=== PATIENT | male | born 1955 | race Caucasian/White ===

== ENCOUNTER 2017-12-21 06:33 | Emergency (ER) | payer SELFPAY ==
[~2017-12-21] VITALS: Ht 177.8 cm; Wt 90.7 kg
[2017-12-21] MEDS ORDERED: TETANUS,DIPTH,PERTUSS P/F (BOOSTRIX) 0.5 ML VIAL IM STA (06:42)
[2017-12-21] MEDS ORDERED: RT-ALBUTEROL/IPRATROPIUM 3 ML (DUONEB) VIAL INH ONE (06:45)
[2017-12-21] MEDS ORDERED: MULT-166 PO (06:47)
[2017-12-21] MEDS ORDERED: CYAN100T (06:47)
[2017-12-21] MEDS ORDERED: DOXA2TAB PO (06:47)
[2017-12-21] MEDS ORDERED: LORA10TA7 (06:47)
[2017-12-21] MEDS ORDERED: LOSA50TA36 (06:47)
[2017-12-21] MEDS ORDERED: LACT1CAP62 PO (06:47)
[2017-12-21] MEDS ORDERED: CHOL400D4 PO (06:47)
[2017-12-21] MEDS ORDERED: METH5TAB4 PO (06:47)
[2017-12-21] MEDS ORDERED: CALC-879 PO (06:47)
[2017-12-21] MEDS ORDERED: ALBU2.5V4 (06:47)
[2017-12-21] MEDS ORDERED: FESO45ML PO (06:47)
[2017-12-21] MEDS ORDERED: INSU100V3 SQ (06:47)
[2017-12-21] MEDS ORDERED: FOLI1TAB24 PO (06:47)
--- NOTE | 2017-12-21 06:52 | ED Fall/Injury ---
General Chief Complaint: Trauma-Non Activation Stated Complaint: FALL Nursing Triage Note: Patient brought in from half-way after patient was found on floor. Per EMS half-way staff reports that patient is a new resident and was admitted late last evening. Patient c/o neck pain. laceration above R eye Source: patient, EMS Exam Limitations: clinical condition, physical impairment History of Present Illness Date Seen by Provider: Dec 21, 2017 Time Seen by Provider: 06:33 Initial Comments Here by [facility] with report of fall fall at sometime overnight at the half-way. He is apparently admitted to the half-way about 15 hours ago. They did not even realize that he can walk. Apparently admitted due to stroke. Patient apparently had intracranial hemorrhage some point. He does have diagnosis of high blood pressure and dysphagia. Also has history of COPD hormone other things. Patient is eyes open and does answer some simple questions but difficult to understand. Does appear to have some wheezing but overall normal vital signs. There is a small abrasion over the right along the eyebrow. He apparently complained of some neck pain earlier today EMS and c- collar was applied by them. This remains. He denies pain currently. Unsure of tetanus status. Occurred: this morning (some time between late last night and this morning) Severity: mild Injuries/Pain Location: face, neck Context: unknown Loss of Consciousness: unsure Associated Symptoms (Fall): No Abdominal Pain, No Chest Pain, No Nausea/ Vomiting; Neck Pain Allergies and Home Medications Allergies Coded Allergies: No Known Drug Allergies (Unverified , 12/21/17) Home Medications Insulin Regular, Human 1,000 Units/10 Ml Soln, 25 UNITS SQ BID, (Reported) Patient Home Medication List Home Medication List Reviewed: Yes (reviewed half-way med list) Review of Systems Constitutional: no symptoms reported Respiratory: see HPI; No cough; wheezing Cardiovascular: No chest pain Musculoskeletal: see HPI, neck pain Skin: see HPI, lesions Review of systems Limited due to underlying chronic medical problems. Past Llwotwp-Dqzfig-Rrxnto Hx Patient Social History Alcohol Use: Denies Use Recreational Drug Use: No Smoking Status: Former Smoker Recent Foreign Travel: No Contact w/Someone Who Travel: No Recent Infectious Disease Expo: No Past Medical History Surgeries: Yes Abdominal (PEG tube), Gallbladder Respiratory: Yes COPD Cardiac: Yes High Cholesterol, Hypertension Neurological: Yes Stroke Gastrointestinal: Yes Hepatitis, Cirrhosis Endocrine: Yes Diabetes, Insulin dep HEENT: No Family Medical History Reviewed Nursing Family Hx No Pertinent Family Hx Physical Exam Vital Signs Vital Signs - First Documented 12/21/17 06:35 Temp 97.8 Pulse 75 Resp 36 B/P (MAP) 145/90 (108) Pulse Ox 93 O2 Delivery Room Air Capillary Refill : Less Than 3 Seconds General Appearance: WD/WN, no apparent distress HEENT: PERRL/EOMI, pharynx normal Neck: non-tender, supple, other (patient has c-collar in place. Neck evaluated and c-collar remains in place.) Cardiovascular: regular rate, rhythm, no murmur Respiratory: No crackles; wheezing, expiration, other (tachypnea) Gastrointestinal: non tender, soft Back: no CVA tenderness, no vertebral tenderness Extremities: non-tender, normal inspection Neurologic/Psychiatric: alert, other (eyes open and does answer simple questions. Follows simple commands) Skin: warm/dry, other (has centimeter laceration/abrasion to the right eyebrow. Has some old blood around the wound. It is scabbed over now.) [place] Coma Score Best Eye Response: (4) Open Spontaneously Best Verbal Response: (4) Confused Conversation (appears to be baseline) Best Motor Response: (6) Obeys Commands [place] Total: 14 Progress/Results/Core Measures Results/Orders Lab Results Laboratory Tests Test 12/21/17 06:45 Range/Units Glucometer 141 H 70-110 MG/DL My Orders Orders - HAZEL GUZMÁN MD Albuterol/Ipra Inhalation Soln (Duoneb I (12/21/17 06:45) Ct Head/Cervical Spine Wo (12/21/17 06:40) Accucheck Stat ONCE (12/21/17 06:40) Svn Small Volume Nebulizer (12/21/17 06:40) Dipht,Pertuss(Acell),Tet Adult (Boostrix (12/21/17 06:42) Albuterol Pre-Mix Nebs (Rt) (Proventil (12/21/17 07:47) Svn Small Volume Nebulizer (12/21/17 07:47) Medications Given in ED Current Medications Medications Dose Ordered Sig/Dangelo Route Start Time Stop Time Status Last Admin Dose Admin Albuterol/ Ipratropium 3 ml ONCE ONCE INH 12/21/17 06:45 12/21/17 06:46 DC 12/21/17 06:46 3 ML Vital Signs/I&O 12/21/17 12/21/17 12/21/17 06:35 06:46 08:09 Temp 97.8 Pulse 75 Resp 36 B/P (MAP) 145/90 (108) Pulse Ox 93 94 96 O2 Delivery Room Air Room Air Room Air Blood Pressure Mean: 108 Progress Progress Note : Progress Note Seen and evaluated. CT head and neck ordered. Tetanus updated. Wound cleaned to right brow and is nonbleeding. Primary closure not indicated at this time. Unsure of the age of the wound and it is nonbleeding and appears to be small. We did initiate DuoNeb therapy and this did help significantly. He was do this this morning per med rec. Monitor patient. 0750: CT does not show any acute findings for C-spine and c-collar removed. CT head results reviewed with radiologist. The stroke listed on half-way admission diagnosis is noted. Do believe the CT findings are consistent with his admitting diagnosis to the half-way and not from this morning. I did discuss this with Dr. Little. We will repeat albuterol neb and patient will be discharged back to half-way for continued care. Discharged home with return precautions. Report given to half-way by nurse. Diagnostic Imaging Diagonstic Imaging: CT Plain Films/CT/US/NM/MRI: c-spine, head Comments NAME: OG HAILE MED REC#: [id number] PT STATUS: REG ER : 1955 PHYSICIAN: HAZEL GUZMÁN MD ADMIT DATE: 12/21/17/ER Draft Date of Exam:12/21/17 CT HEAD/CERVICAL SPINE WO PROCEDURE: CT head and CT cervical spine without contrast. TECHNIQUE: Multiple contiguous axial images were obtained through the brain and cervical spine without the use of intravenous contrast. Sagittal and coronal reformations through the cervical spine were then performed. INDICATION: Fell, head and neck pain. There are no prior studies available for comparison. CT of the head: FINDINGS: There is no mass, shift of midline or parenchymal hemorrhage to suggest an acute intracranial abnormality. However, there is a prominent area of diminished density in the periventricular white matter of the left temporal and frontal lobe this could be related to encephalomalacia from a long-standing infarct. The possibility that this is related to brain edema from a subacute infarct should also be considered. There also appears to be a small amount of hemorrhage in the dependent portion of each occipital horn. If further imaging is desired, then MRI would be recommended. There is cortical atrophy present. The degree of atrophy is consistent with the patient's age. The bone windows show no sign of a fracture or destructive lesion. Reportedly, the patient has a laceration above his right eye. This is difficult to appreciate on this exam. The orbits themselves are generally unremarkable. The sinuses are clear. IMPRESSION: 1. There is no mass or parenchymal hemorrhage identified. There is a small amount of hemorrhage in the dependent portion of each occipital horn. 2. The prominent area of diminished density in the periventricular white matter of the left temporal and frontal lobes is of uncertain etiology. Considerations and recommendations as above. 3. These results will be discussed with Dr. Eh Guzmán. CT cervical spine: The reconstructed sagittal images show slight anterior translation of C3 with respect to C4 and minimal anterior translation of C4 with respect to C5. There is also narrowing of disc spaces at C5-C6 and C6-C7. There does not appear to be any significant central stenosis at this level, but There is narrowing of the neural foramen on the right at C6-C7. There is no fracture or acute bony abnormality appreciated. The lung apices are clear. There is no retropharyngeal edema. The thyroid gland is unremarkable. IMPRESSION: 1. There is no evidence for an acute bony abnormality. 2. There is severe degenerative disc and bony disease at C5-C6 and C6-C7. Dictated on workstation # [id number] Dict: 12/21/17 0736 Trans: 12/21/17 0813 [id number] Interpreted by: TRISH HERNADEZ MD Electronically signed by: Reviewed: Reviewed by Me, Discussed w/Radiologist Departure Impression Primary Impression: Facial abrasion Qualified Codes: S00.81XA - Abrasion of other part of head, initial encounter Additional Impression: COPD (chronic obstructive pulmonary disease) with chronic bronchitis Disposition: 01 HOME, SELF-CARE Condition: Stable Departure-Patient Inst. Decision time for Depature: 07:54 Referrals: ADRIANA CARTER DO Patient Instructions: Skin Abrasions (DC), Minor Head Injury (DC) Add. Discharge Instructions: All discharge instructions reviewed with patient and/or family. Voiced understanding. Continue previously prescribed medications. He may use antibiotic ointment over wound to the right eyebrow twice daily for the next several days and then as needed. Return for worse pain, vomiting, weakness, breathing problems or other concerns as needed. Follow-up with his doctor in a few days for recheck as needed. HAZEL GUZMÁN MD Dec 21, 2017 06:51
[2017-12-21] MEDS ORDERED: RT-ALBUTEROL SULF 2.5 MG/3 ML PRE-MIX VIAL INH STA (07:47)
--- NOTE | 2017-12-21 08:13 | Diagnostic Imaging Report ---
PROCEDURE: CT head and CT cervical spine without contrast. TECHNIQUE: Multiple contiguous axial images were obtained through the brain and cervical spine without the use of intravenous contrast. Sagittal and coronal reformations through the cervical spine were then performed. INDICATION: Fell, head and neck pain. There are no prior studies available for comparison. CT of the head: FINDINGS: There is no mass, shift of midline or extra-axial hemorrhage to suggest an acute intracranial abnormality. However, there is a prominent area of diminished density in the periventricular white matter of the left temporal and frontal lobe this could be related to encephalomalacia from a long-standing infarct. The possibility that this is related to brain edema from a subacute infarct should also be considered. There may even be a minute amount of hemorrhage in this area. There also appears to be a small amount of hemorrhage in the dependent portion of each occipital horn. If further imaging is desired, then MRI would be recommended. There is cortical atrophy present. The degree of atrophy is consistent with the patient's age. The bone windows show no sign of a fracture or destructive lesion. Reportedly, the patient has a laceration above his right eye. This is difficult to appreciate on this exam. The orbits themselves are generally unremarkable. The sinuses are clear. IMPRESSION: 1. There is no mass or extra-axial hemorrhage identified. There is a small amount of hemorrhage in the dependent portion of each occipital horn and there may be a minimal amount of hemorrhage in the left temporal/frontal region amidst the prominent area of diminished density. MRI would be recommended for further study if clinically indicated. If previous exams are available, they would be helpful for comparison as well. 2. There is no acute abnormality noted otherwise. 3. These results were discussed with Dr. Eh Spain at the time of this dictation. CT cervical spine: The reconstructed sagittal images show slight anterior translation of C3 with respect to C4 and minimal anterior translation of C4 with respect to C5. There is also narrowing of disc spaces at C5-C6 and C6-C7. There does not appear to be any significant central stenosis at this level, but There is narrowing of the neural foramen on the right at C6-C7. There is no fracture or acute bony abnormality appreciated. The lung apices are clear. There is no retropharyngeal edema. The thyroid gland is unremarkable. IMPRESSION: 1. There is no evidence for an acute bony abnormality. 2. There is severe degenerative disc and bony disease at C5-C6 and C6-C7. Dictated by: Dictated on workstation # [id number]
[2017-12-21 08:43] VITALS: BP 135/86
== END 2017-12-21 08:43 | disposition home or self-care (01) ==
LOC: ER 06:36
DX: S00.81XA Abrasion of other part of head, initial encounter (principal); J44.9 Chronic obstructive pulmonary disease, unspecified; E78.00 Pure hypercholesterolemia, unspecified; I10 Essential (primary) hypertension; E11.9 Type 2 diabetes mellitus without complications; R40.2142 Coma scale, eyes open, spontaneous, at arrival to emergency department; R40.2242 Coma scale, best verbal response, confused conversation, at arrival to emergency department; R40.2362 Coma scale, best motor response, obeys commands, at arrival to emergency department; Z23 Encounter for immunization; Z87.19 Personal history of other diseases of the digestive system; Z86.73 Personal history of transient ischemic attack (TIA), and cerebral infarction without residual deficits; W19.XXXA Unspecified fall, initial encounter; Y92.129 Unspecified place in nursing home as the place of occurrence of the external cause
CPT/HCPCS: 70450; 72125; 82962; 90715; 94640

== ENCOUNTER 2018-01-09 16:34 | Emergency (ER) | payer SELFPAY ==
[~2018-01-09] VITALS: Ht 172.7 cm; Wt 81.6 kg
[~2018-01-09 16:34] MED LIST: ALBU2.5V4; CALC-879 PO; CHOL400D4 PO; CYAN100T; DOXA2TAB PO; FESO45ML PO; FOLI1TAB24 PO; INSU100V3 SQ; LACT1CAP62 PO; LORA10TA7; LOSA50TA36; METH5TAB4 PO; MULT-166 PO
--- OUTSIDE RECORDS SUMMARY | 2018-01-09 16:39 | XMS REPORT | Continuity of Care Document ---
Demographics Preferred Language Unknown Marital Status Unknown [facility] Affiliation Unknown Race Unknown Ethnic Group Unknown Author Author [facility] Address Unknown Phone Unavailable Allergies Active Description Code Type Severity Reaction Onset Reported/Identified Relationship to Patient Clinical Status Yes No Known Drug Allergies [id number] Drug Allergy Unknown N/A 12/21/2017 Medications There is no data. Problems Date Dx Coded Attending Type Code Diagnosis Diagnosed By 11/14/2017 S I10 Essential ( primary) hypertension 11/14/2017 P I6781 Acute cerebrovascular insufficiency 11/14/2017 S Z720 Tobacco use 11/14/2017 S Z751 Person awaiting admission to adequate facility elsewhere 11/14/2017 S I10 Essential ( primary) hypertension 11/14/2017 P I6781 Acute cerebrovascular insufficiency 12/21/2017 HAZEL GUZMÁN MD Ot E11.9 TYPE 2 DIABETES MELLITUS WITHOUT COMPLIC 12/21/2017 HAZEL GUZMÁN MD Ot E78.00 PURE HYPERCHOLESTEROLEMIA, UNSPECIFIED 12/21/2017 HAZEL GUZMÁN MD Ot I10 ESSENTIAL (PRIMARY) HYPERTENSION 12/21/2017 HAZEL GUZMÁN MD Ot J44.9 CHRONIC OBSTRUCTIVE PULMONARY DISEASE, U 12/21/2017 HAZEL GUZMÁN MD, Ot M54.2 CERVICALGIA 12/21/2017 HAZEL GUZMÁN MD Ot R40.2142 COMA SCALE, EYES OPEN, SPONTANEOUS, EMR 12/21/2017 HAZEL GUZMÁN MD Ot R40.2242 COMA SCALE, BEST VERBAL RESPONSE, CONFUS 12/21/2017 HAZEL GUZMÁN MD Ot R40.2362 COMA SCALE, BEST MOTOR RESPONSE, OBEYS C 12/21/2017 HAZEL GUZMÁN MD Ot S00.81XA ABRASION OF OTHER PART OF HEAD, INITIAL 12/21/2017 HAZEL GUZMÁN MD Ot W19.XXXA UNSPECIFIED FALL, INITIAL ENCOUNTER 12/21/2017 HAZEL GUZMÁN MD Ot Y92.[address] [facility] 12/21/2017 HAZEL GUZMÁN MD Ot Z23 ENCOUNTER FOR IMMUNIZATION 12/21/2017 HAZEL GUZMÁN MD Ot Z86.73 PRSNL HX OF TIA (TIA), AND CEREB INFRC W 12/21/2017 HAZEL GUZMÁN MD, Ot Z87.19 PERSONAL HISTORY OF OTHER DISEASES OF TH 12/24/2017 HAZEL GUZMÁN MD, Ot E11.9 TYPE 2 DIABETES MELLITUS WITHOUT COMPLIC 12/24/2017 HAZEL GUZMÁN MD, Ot E78.00 PURE HYPERCHOLESTEROLEMIA, UNSPECIFIED 12/24/2017 HAZEL GUZMÁN MD, Ot I10 ESSENTIAL (PRIMARY) HYPERTENSION 12/24/2017 HAZEL GUZMÁN MD, Ot J44.9 CHRONIC OBSTRUCTIVE PULMONARY DISEASE, U 12/24/2017 HAZEL GUZMÁN MD, Ot M54.2 CERVICALGIA 12/24/2017 HAZEL GUZMÁN MD, Ot R40.2142 COMA SCALE, EYES OPEN, SPONTANEOUS, EMR 12/24/2017 HAZEL GUZMÁN MD, Ot R40.2242 COMA SCALE, BEST VERBAL RESPONSE, CONFUS 12/24/2017 HAZEL GUZMÁN MD, Ot R40.2362 COMA SCALE, BEST MOTOR RESPONSE, OBEYS C 12/24/2017 HAZEL GUZMÁN MD, Ot S00.81XA ABRASION OF OTHER PART OF HEAD, INITIAL 12/24/2017 HAZEL GUZMÁN MD, Ot W19.XXXA UNSPECIFIED FALL, INITIAL ENCOUNTER 12/24/2017 HAZEL GUZMÁN MD Ot Y92.[address] [facility] 12/24/2017 HAZEL GUZMÁN MD Ot Z23 ENCOUNTER FOR IMMUNIZATION 12/24/2017 HAZEL GUZMÁN MD, Ot Z86.73 PRSNL HX OF TIA (TIA), AND CEREB INFRC W 12/24/2017 HAZEL GUZMÁN MD, Ot Z87.19 PERSONAL HISTORY OF OTHER DISEASES OF Procedures There is no data. Results Test Result Range Capillary blood glucose measurement by glucometer (mass/volume) - 12/21/17 06: 45 Capillary blood glucose measurement by glucometer (mass/volume) 141 mg/dL 70-110 Encounters ACCT No. Visit Date/Time Discharge Status Pt. Type Provider Facility Loc./Unit Complaint [id number] 12/05/2017 15:56:10 12/05/2017 23:59:59 CLS Outpatient Connie Hudson [id number] 12/21/2017 06:36:00 12/21/2017 08:43:00 DIS Emergency ARIELLE ANDERS, HAZEL Barragan [facility] ER FALL [id number] 01/09/2018 16:35:00 ACT Emergency ELENA WIKLES DO [facility] ER GI TUBE NEEDS REPLACED,STITCHES FELL OUT [id number] 11/14/2017 15:18:00 Document Registration [id number] 11/14/2017 15:18:00 Document Registration
--- NOTE | 2018-01-09 18:11 | ED GI ---
General Chief Complaint: General Problems/Pain Stated Complaint: GI TUBE NEEDS REPLACED,STITCHES FELL OUT Nursing Triage Note: pt has g-tube placed 1 mo ago, pt pulled on it today, some stitches were removed and [facility] would like placement checked. Sepsis Screen: No Definite Risk Source of Information: Patient Exam Limitations: No Limitations History of Present Illness Date Seen by Provider: Jan 09, 2018 Time Seen by Provider: 18:08 Initial Comments to ER by [facility] staff with reports of a possibly displaced jejunostomy tube. he had this placed about one month ago and it remains sutured in place. Today the sutures broke and it slid partway out. Timing/Duration: 4-6 Hours Severity/Quality: Moderate Radiation: No Radiation Allergies and Home Medications Allergies Coded Allergies: No Known Drug Allergies (Unverified , 12/21/17) Home Medications Insulin Regular, Human 1,000 Units/10 Ml Soln, 25 UNITS SQ BID, (Reported) Patient Home Medication List Home Medication List Reviewed: Yes Review of Systems Constitutional: see HPI EENTM: No Symptoms Reported Respiratory: No Symptoms Reported Cardiovascular: No Symptoms Reported Gastrointestinal: See HPI Genitourinary: No Symptoms Reported Musculoskeletal: no symptoms reported Skin: no symptoms reported Psychiatric/Neurological: No Symptoms Reported Endocrine: No Symptoms Reported Past Svxfbih-Zdndyd-Tnoydf Hx Patient Social History Alcohol Use: Denies Use Recreational Drug Use: No 2nd Hand Smoke Exposure: No Recent Foreign Travel: No Contact w/Someone Who Travel: No Recent Infectious Disease Expo: No Past Medical History Surgeries: Yes Abdominal, Gallbladder Respiratory: Yes COPD Cardiac: Yes High Cholesterol, Hypertension Neurological: Yes Stroke Gastrointestinal: Yes Hepatitis, Cirrhosis Endocrine: Yes Diabetes, Insulin dep HEENT: No Psychosocial: Yes ADD/ADHD Family Medical History No Pertinent Family Hx Physical Exam Vital Signs Vital Signs - First Documented 01/09/18 17:00 Temp 97.2 Pulse 72 Resp 20 B/P (MAP) 91/59 (70) Pulse Ox 96 O2 Delivery Room Air Capillary Refill : Less Than 3 Seconds Height/Weight/BMI Height: 5'8.00" Weight: 180lbs.oz.81.361330hf; BMI Method:Estimated General Appearance: WD/WN, no apparent distress HEENT: PERRL/EOMI, normal ENT inspection Neck: non-tender, full range of motion Respiratory: normal breath sounds, no respiratory distress, no accessory muscle use Cardiovascular: regular rate, rhythm, no murmur Gastrointestinal: normal bowel sounds, non tender Genital/Rectal: other (jjejunostomy tube remains in place left side of the mid lower abdomen. No bleeding. The stitches have come undone.) Extremities: normal range of motion, non-tender Neurologic/Psychiatric: alert, normal mood/affect, oriented x 3 Skin: normal color, warm/dry Procedures/Interventions after verifying of the PEG tube was in correct placement, area around the insertion site was cleansed with Betadine swabs 3 and landed dry. Then anesthetized with 1 mL of 1% lidocaine without epinephrine then a suture was placed size 3-0 Ethilon which was then tied around the PEG tube to secure it in location then covered with gauze. Progress/Results/Core Measures Results/Orders My Orders Orders - INDIA HSIEH APRN Lidocaine 2% Injection 20 Ml (Xylocaine (01/09/18 18:15) Peg Tube Check (01/09/18 18:07) Medications Given in ED Current Medications Medications Dose Ordered Sig/Dangelo Route Start Time Stop Time Status Last Admin Dose Admin Lidocaine HCl 2 ml ONCE ONCE INJ 01/09/18 18:15 01/09/18 18:16 DC 01/09/18 18:45 2 ML Vital Signs/I&O 01/09/18 17:00 Temp 97.2 Pulse 72 Resp 20 B/P (MAP) 91/59 (70) Pulse Ox 96 O2 Delivery Room Air Blood Pressure Mean: 70 Departure Impression Primary Impression: Jejunostomy tube present Disposition: 03 ER SNF Condition: Stable Departure-Patient Inst. Decision time for Depature: 18:44 Referrals: ADRIANA CARTER DO (PCP/Family) Primary Care Physician Patient Instructions: How to Care for Your PEG Tube Add. Discharge Instructions: All discharge instructions reviewed with patient and/or family. Voiced understanding. INDIA HSIEH APRN Jan 09, 2018 18:11
[2018-01-09] MEDS ORDERED: LIDOCAINE 2% 20 ML (XYLOCAINE) VIAL INJ ONE (18:15)
--- NOTE | 2018-01-09 18:51 | Diagnostic Imaging Report ---
Indication: Recent percutaneous feeding tube placement. Concern for dislodgment. Malfunction. COMPARISON: None FINDINGS: Multiple frontal and lateral supine radiographic views of the abdomen were obtained before and after injection of contrast through the indwelling percutaneous feeding tube. Contrast opacifies what appears to be percutaneous jejunostomy tube. Distal tip of the tube appears to reside within the loops of jejunum. There is no extravasation of contrast. Tube does appear to be patent. Small bowel loops are nondistended. Note is made of calcified aortic atherosclerosis. There may be cholelithiasis. IMPRESSION: 1. Indwelling percutaneous jejunostomy tube appears to be patent and in appropriate position. Dictated by: Dictated on workstation # [id number]
[2018-01-09 18:55] VITALS: BP 96/62
== END 2018-01-09 18:55 ==
LOC: EDUNIT# 16:34 → ER 16:35
DX: K94.19 Other complications of enterostomy (principal); J44.9 Chronic obstructive pulmonary disease, unspecified; I10 Essential (primary) hypertension; E78.00 Pure hypercholesterolemia, unspecified; E11.9 Type 2 diabetes mellitus without complications; F90.9 Attention-deficit hyperactivity disorder, unspecified type; Z86.73 Personal history of transient ischemic attack (TIA), and cerebral infarction without residual deficits; Z79.4 Long term (current) use of insulin
CPT/HCPCS: 49465

== ENCOUNTER 2018-01-17 11:16 | Emergency (ER) | payer SELFPAY ==
[~2018-01-17] VITALS: Ht 165.1 cm; Wt 86.2 kg
--- OUTSIDE RECORDS SUMMARY | 2018-01-17 11:21 | XMS REPORT | Continuity of Care Document ---
Demographics Preferred Language Unknown Marital Status Unknown Mandaen Affiliation Unknown Race Unknown Ethnic Group Unknown Author Author [facility] Address Unknown Phone Unavailable Allergies Active Description Code Type Severity Reaction Onset Reported/Identified Relationship to Patient Clinical Status Yes No Known Drug Allergies [id number] Drug Allergy Unknown N/A 12/21/2017 Medications There [...] GUZMÁN MD Ot Y92.[address] IN [facility]ACE 12/21/2017 HAZEL GUZMÁN MD Ot Z23 ENCOUNTER FOR IMMUNIZATION 12/21/2017 HAZEL GUZMÁN MD Ot Z86.73 PRSNL HX OF TIA (TIA), AND CEREB INFRC W 12/21/2017 HAZEL GUZMÁN MD, Ot Z87.19 PERSONAL HISTORY OF OTHER DISEASES OF 12/24/2017 HAZEL GUZMÁN MD Ot E11.9 TYPE 2 [...] MOTOR RESPONSE, OBEYS C 12/24/2017 HAZEL GUZMÁN MD Ot S00.81XA ABRASION OF OTHER PART OF HEAD, INITIAL 12/24/2017 HAZEL GUZMÁN MD Ot W19.XXXA UNSPECIFIED FALL, INITIAL ENCOUNTER 12/24/2017 HAZEL GUZMÁN MD Ot Y92.[address] IN LONG TERM PLACE 12/24/2017 HAZEL GUZMÁN MD Ot Z23 ENCOUNTER FOR IMMUNIZATION 12/24/2017 HAZEL GUZMÁN MD, Ot Z86.73 PRSNL HX OF TIA (TIA), AND CEREB INFRC W 12/24/2017 HAZEL GUZMÁN MD, Ot Z87.19 PERSONAL HISTORY OF OTHER DISEASES OF 01/11/2018 INDIA HSIEH APRN Ot E11.9 TYPE 2 DIABETES MELLITUS WITHOUT COMPLIC 01/11/2018 INDIA HSIEH APRN Ot E78.00 PURE HYPERCHOLESTEROLEMIA, UNSPECIFIED 01/11/2018 INDIA HSIEH APRN Ot F90.9 ATTENTION-DEFICIT HYPERACTIVITY DISORDER 01/11/2018 INDIA HSIEH APRN Ot I10 ESSENTIAL (PRIMARY) HYPERTENSION 01/11/2018 INDIA HSIEH APRN Ot J44.9 CHRONIC OBSTRUCTIVE PULMONARY DISEASE, U 01/11/2018 INDIA HSIEH APRN Ot 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 Results Test Result Range Capillary blood glucose measurement by glucometer (mass/volume) - 12/21/17 06: 45 Capillary blood glucose measurement by glucometer (mass/volume) 141 mg/dL 70-110 Encounters ACCT No. Visit Date/Time Discharge Status Pt. Type Provider Facility Loc./Unit Complaint [id number] 12/05/2017 15:56:10 12/05/2017 23:59:59 CLS Outpatient Connie Hudson [id number] 01/09/2018 16:35:00 01/09/2018 18:55:00 DIS Outpatient INDIA HSIEH APRN [facility] ER GI TUBE NEEDS REPLACED, STITCHES FELL OUT [id number] 12/21/2017 06:36:00 12/21/2017 08:43:00 DIS Emergency HAZEL GUZMÁN MD [facility] ER FALL [id number] 11/14/2017 15:18:00 Document Registration [id number] 11/14/2017 15:18:00 Document Registration
--- NOTE | 2018-01-17 11:29 | ED General ---
General Stated Complaint: TORE G-TUBE Source of Information: Patient, Correction Records Exam Limitations: No Limitations History of Present Illness Date Seen by Provider: Jan 17, 2018 Time Seen by Provider: 11:26 Initial Comments To ER from [facility] with c/o "PEG tube torn" He is a very poor historian and arrives to ER with no report from senior care and only a facesheet from senior care. . He had a recently placed jejunostomy tube. This has been sutured in place. The sutures tore out today but the tube remains in place. He was also here about a week ago for the same and this was resutured. Timing/Duration: 1/2 Hour Severity: Moderate Allergies and Home Medications Allergies Coded Allergies: No Known Drug Allergies (Unverified , 12/21/17) Home Medications Insulin Regular, Human 1,000 Units/10 Ml Soln, 25 UNITS SQ BID, (Reported) Patient Home Medication List Home Medication List Reviewed: Yes Review of Systems Constitutional: see HPI EENTM: see HPI Respiratory: no symptoms reported Cardiovascular: no symptoms reported Genitourinary: no symptoms reported Musculoskeletal: see HPI Skin: no symptoms reported Psychiatric/Neurological: No Symptoms Reported Hematologic/Lymphatic: No Symptoms Reported Immunological/Allergic: no symptoms reported Past Vnrqjmf-Opozym-Ftaizh Hx Patient Social History 2nd Hand Smoke Exposure: No Recent Foreign Travel: No Contact w/Someone Who Travel: No Past Medical History Surgeries: Yes Abdominal, Gallbladder Respiratory: Yes COPD Cardiac: Yes High Cholesterol, Hypertension Neurological: Yes Stroke Gastrointestinal: Yes Hepatitis, Cirrhosis Endocrine: Yes Diabetes, Insulin dep HEENT: No Psychosocial: Yes ADD/ADHD Family Medical History No Pertinent Family Hx Physical Exam Vital Signs Vital Signs - First Documented 01/17/18 11:29 Temp 98.1 Pulse 68 Resp 20 B/P (MAP) 118/76 (90) Pulse Ox 98 Capillary Refill : Height, Weight, BMI Height: 5'8.00" Weight: 180lbs. oz. 81.748471hx; BMI Method:Estimated General Appearance: No Apparent Distress, WD/WN Eyes: Bilateral Eye Normal Inspection, Bilateral Eye PERRL HEENT: PERRL/EOMI, TMs Normal Neck: Full Range of Motion, Normal Inspection Respiratory: No Accessory Muscle Use, No Respiratory Distress Cardiovascular: Regular Rate, Rhythm, Normal Peripheral Pulses Gastrointestinal: Normal Bowel Sounds, Non Tender, Soft, Other (jejunostomy tube seen in place, the formerly placed sutures of torn from the skin. There is no bleeding. The peristomal scan is normal without induration or fluctuance to suggest abscess. There is minimal erythema. The tip of the Jejunostomy is covered with tape. ) Neurologic/Psychiatric: Alert, No Motor/Sensory Deficits, Other (States he had this jejunostomy tube placed for GERD, has a large midline healed abdominal scar. ) Progress/Results/Core Measures Suspected Sepsis SIRS Temperature: Pulse: Respiratory Rate: Blood Pressure / Mean: Results/Orders My Orders Orders - INDIA HSIEH APRN Lidocaine 2% Injection 20 Ml (Xylocaine (01/17/18 11:30) Medications Given in ED Current Medications Medications Dose Ordered Sig/Dangelo Route Start Time Stop Time Status Last Admin Dose Admin Lidocaine HCl 1 ml ONCE ONCE INJ 01/17/18 11:30 01/17/18 11:31 DC 01/17/18 11:48 1 ML Vital Signs/I&O 01/17/18 01/17/18 11:29 11:57 Temp 98.1 Pulse 68 78 Resp 20 16 B/P (MAP) 118/76 (90) 123/80 Pulse Ox 98 97 Capillary Refill : Progress Note : Progress Note Peristomal skin was cleaned with Betadine swabs, anesthetized with 1 mL of 1% lidocaine without epinephrine and suture (4-0 prolene) was placed through the skin securing the PEG tube in place. Covered with gauze. Departure Impression Primary Impression: Jejunostomy malfunction Disposition: 01 HOME, SELF-CARE Condition: Stable Departure-Patient Inst. Decision time for Depature: 11:28 Referrals: ADRIANA CARTER DO (PCP/Family) Primary Care Physician Patient Instructions: How to Care for Your PEG Tube Add. Discharge Instructions: 1. Follow-up with your surgeon as scheduled 2. Return to ER for any concerns. INDIA HSIEH APRN Jan 17, 2018 11:29
[2018-01-17] MEDS ORDERED: LIDOCAINE 2% 20 ML (XYLOCAINE) VIAL INJ ONE (11:30)
[2018-01-17 11:57] VITALS: BP 123/80
== END 2018-01-17 11:57 | disposition home or self-care (01) ==
LOC: EDUNIT# 11:16 → ER 11:17
DX: K94.13 Enterostomy malfunction (principal); J44.9 Chronic obstructive pulmonary disease, unspecified; E78.00 Pure hypercholesterolemia, unspecified; E11.9 Type 2 diabetes mellitus without complications; F90.9 Attention-deficit hyperactivity disorder, unspecified type; I10 Essential (primary) hypertension; Z87.19 Personal history of other diseases of the digestive system; Z86.73 Personal history of transient ischemic attack (TIA), and cerebral infarction without residual deficits; Z79.4 Long term (current) use of insulin
CPT/HCPCS: 12001

== ENCOUNTER 2018-01-17 14:44 | Emergency (ER) | payer SELFPAY ==
[~2018-01-17] VITALS: Ht 165.1 cm; Wt 86.2 kg
--- NOTE | 2018-01-17 15:09 | ED GI ---
General Chief Complaint: Catheter/Drain/Tube Problems Stated Complaint: TORE G TUBE Nursing Triage Note: pt presents to ed from [facility] with complaints of j tube not working/broken. Sepsis Screen: No Definite Risk Source of Information: Patient Exam Limitations: No Limitations History of Present Illness Date Seen by Provider: Jan 17, 2018 Time Seen by Provider: 15:07 Initial Comments to ER from [facility] with reports that he had ripped off the tip of his jejunostomy tube. He was here earlier today in the issue was believed to be that the sutures holding it in place had come out. The tip of it was covered with tape and so was not evaluated. Apparently, the tip has come off as well and they are unable to attach feeding catheter tip to this. Timing/Duration: 1-2 Days Severity/Quality: Moderate Radiation: No Radiation Activities at Onset: None Allergies and Home Medications Allergies Coded Allergies: No Known Drug Allergies (Unverified , 12/21/17) Home Medications Insulin Regular, Human 1,000 Units/10 Ml Soln, 25 UNITS SQ BID, (Reported) Patient Home Medication List Home Medication List Reviewed: Yes Review of Systems Constitutional: see HPI EENTM: No Symptoms Reported Respiratory: No Symptoms Reported Cardiovascular: No Symptoms Reported Gastrointestinal: See HPI Genitourinary: No Symptoms Reported Musculoskeletal: no symptoms reported Skin: no symptoms reported Psychiatric/Neurological: No Symptoms Reported Endocrine: No Symptoms Reported Hematologic/Lymphatic: No Symptoms Reported Past Zalljgu-Fvrzxa-Jncsfx Hx Patient Social History Alcohol Use: Past History Recreational Drug Use: No Smoking Status: Current Everyday Smoker Type Used: Cigarettes 2nd Hand Smoke Exposure: No Recent Foreign Travel: No Contact w/Someone Who Travel: No Recent Infectious Disease Expo: No Physical Abuse: No Sexual Abuse: No Mistreated: No Fear: No Past Medical History Surgeries: Yes (G-TUBE PLACEMENT) Abdominal, Gallbladder Respiratory: Yes COPD Cardiac: Yes High Cholesterol, Hypertension Neurological: Yes Stroke Gastrointestinal: Yes Hepatitis, Cirrhosis Endocrine: Yes Diabetes, Insulin dep HEENT: No Psychosocial: Yes ADD/ADHD Nursing Suicide Risk Score: 0 Family Medical History No Pertinent Family Hx Physical Exam Vital Signs Vital Signs - First Documented 01/17/18 14:52 Temp 97.9 Pulse 60 Resp 20 B/P (MAP) 101/74 (83) Pulse Ox 96 Capillary Refill : Less Than 3 Seconds Height/Weight/BMI Height: 5'5.00" Weight: 190lbs. oz. 86.853054ll; BMI Method:Stated General Appearance: WD/WN, no apparent distress HEENT: PERRL/EOMI, normal ENT inspection Neck: non-tender, full range of motion Respiratory: no respiratory distress, no accessory muscle use Cardiovascular: regular rate, rhythm, no murmur Gastrointestinal: normal bowel sounds, soft Extremities: normal range of motion, non-tender Neurologic/Psychiatric: alert, normal mood/affect Skin: normal color, warm/dry Progress/Results/Core Measures Results/Orders Lab Results Laboratory Tests Test 01/17/18 15:23 Range/Units Glucometer 61 L 70-110 MG/DL My Orders Orders - INDIA HSIEH APRN Accucheck Stat ONCE (01/17/18 15:18) General/Regular (01/17/18 Lunch) Vital Signs/I&O 01/17/18 14:52 Temp 97.9 Pulse 60 Resp 20 B/P (MAP) 101/74 (83) Pulse Ox 96 Blood Pressure Mean: 83 Departure Communication (Admissions) THE TAPERED TIP OF A NEW JEJUNOSTOMY TUBE WAS PLACED INTO THE DISTAL MOST PART OF THE EXISTING JEJUNOSTOMY FEEDING TUBE, NOW AN IRRIGATION SYRINGE CAN BE INSERTED INTO THIS WITH A SEAL AND WITH LEAKAGE. bLOOD SUGAR WAS 61 SO HE WAS GIVEN APPLE JUICE THROUGH THE peg TUBE Impression Primary Impression: Jejunostomy malfunction Disposition: 03 XFER SNF Condition: Improved Departure-Patient Inst. Decision time for Depature: 15:39 Referrals: ADRIANA CARTER DO (PCP/Family) Primary Care Physician Patient Instructions: How to Care for Your PEG Tube Add. Discharge Instructions: 1. Follow up with your surgeon within 1 week. Call tomorrow to make an appointment. INDIA HSIEH APRN Jan 17, 2018 15:09
[2018-01-17 16:01] VITALS: BP 123/65
== END 2018-01-17 16:01 ==
LOC: EDUNIT# 14:44 → ER 14:46
DX: K94.13 Enterostomy malfunction (principal); J44.9 Chronic obstructive pulmonary disease, unspecified; E78.00 Pure hypercholesterolemia, unspecified; I10 Essential (primary) hypertension; E11.9 Type 2 diabetes mellitus without complications; F90.9 Attention-deficit hyperactivity disorder, unspecified type; F17.210 Nicotine dependence, cigarettes, uncomplicated; Z87.19 Personal history of other diseases of the digestive system; Z86.73 Personal history of transient ischemic attack (TIA), and cerebral infarction without residual deficits; Z79.4 Long term (current) use of insulin
CPT/HCPCS: 82962; 99282

== ENCOUNTER → 2018-02-08 | Outpatient (CLI) | payer SELFPAY ==
--- NOTE | 2018-02-08 11:44 | Diagnostic Imaging Report ---
INDICATION: Aspiration. TECHNIQUE: Study was performed in conjunction with speech therapy. Videofluoroscopy was performed during swallowing of barium of multiple consistencies. FINDINGS: Patient ingested thin liquid as well as nectar consistency, applesauce, mechanical soft and cracker consistency. 2 minutes and 31 seconds of fluoroscopy was utilized. There is delay in initiation of the swallow with early spillover with all consistencies. There was an episode of penetration and aspiration during swallowing of thin liquid from a cup. There was a single episode of deep laryngeal penetration during swallowing of nectar consistency from the cup. Mild vallecular and piriform sinus residue was noted which did clear with repeated swallows. There is normal epiglottic tilt and laryngeal elevation. IMPRESSION: Abnormal video swallow demonstrating an episode of aspiration during swallowing of thin liquid as well as an episode of penetration with nectar consistency from a cup. Dictated by: Dictated on workstation # [id number]
== END ==
LOC: RAD 10:50
PROVIDERS: ATTEND Family Medicine
DX: R13.10 Dysphagia, unspecified (principal)
CPT/HCPCS: 74230

== ENCOUNTER 2018-03-07 10:58 | Emergency (ER) | payer OTHER ==
[~2018-03-07] VITALS: Ht 175.3 cm; Wt 81.6 kg
[~2018-03-07 10:58] MED LIST changes: -LOSA50TA36; +LOSA50TA7
[2018-03-07] MEDS ORDERED: LIDOCAINE 1% INJ 20 ML 20 ML VIAL INJ ONE (11:30)
--- NOTE | 2018-03-07 11:54 | ED General ---
General Chief Complaint: Catheter/Drain/Tube Problems Stated Complaint: PULLED OUT G-TUBE Nursing Triage Note: Pt arrives to ED Room 10 c/o pulled G-tube out. Pt states that it has been out for 24hrs. Pt denies any pain at this time. Pt has his G-tube with him to be replaced. Nursing Sepsis Screen: No Definite Risk Source of Information: Patient Exam Limitations: No Limitations History of Present Illness Date Seen by Provider: Mar 07, 2018 Time Seen by Provider: 11:53 Initial Comments To ER per private vehicle from [facility] with reports that his jejunostomy tube has fallen out earlier this morning. Timing/Duration: 4-6 Hours Severity: Moderate Allergies and Home Medications Allergies Coded Allergies: No Known Drug Allergies (Unverified , 12/21/17) Home Medications Insulin Regular, Human 1,000 Units/10 Ml Soln, 25 UNITS SQ BID, (Reported) Patient Home Medication List Home Medication List Reviewed: Yes Review of Systems Review of Systems Constitutional: see HPI EENTM: see HPI Respiratory: no symptoms reported Cardiovascular: no symptoms reported Genitourinary: no symptoms reported Musculoskeletal: no symptoms reported Skin: no symptoms reported Psychiatric/Neurological: No Symptoms Reported Hematologic/Lymphatic: No Symptoms Reported Immunological/Allergic: no symptoms reported Past Lfkkmby-Nusvnu-Jktwpw Hx Patient Social History Alcohol Use: Rarely Uses Recreational Drug Use: No Smoking Status: Current Everyday Smoker Type Used: Cigarettes 2nd Hand Smoke Exposure: No Recent Foreign Travel: No Contact w/Someone Who Travel: No Recent Infectious Disease Expo: No Recent Hopitalizations: No Physical Abuse: No Sexual Abuse: No Mistreated: No Fear: No Seasonal Allergies Seasonal Allergies: No Past Medical History Surgeries: Yes (G-TUBE PLACEMENT) Abdominal, Gallbladder Respiratory: Yes COPD Cardiac: Yes High Cholesterol, Hypertension Neurological: Yes Stroke Genitourinary: No Gastrointestinal: Yes (GTube placement r/t swallowing difficulties) Hepatitis, Cirrhosis Musculoskeletal: No Endocrine: Yes Diabetes, Insulin dep HEENT: No Cancer: No Psychosocial: Yes ADD/ADHD Integumentary: No Family Medical History No Pertinent Family Hx Physical Exam Vital Signs Vital Signs - First Documented 03/07/18 11:19 Temp 98.5 Pulse 67 Resp 16 B/P (MAP) 107/75 (86) Pulse Ox 98 O2 Delivery Room Air Capillary Refill : NONE Height, Weight, BMI Height: 5'9.00" Weight: 180lbs. oz. 81.748857fv; BMI Method:Stated General Appearance: No Apparent Distress, WD/WN Eyes: Bilateral Eye Normal Inspection, Bilateral Eye PERRL, Bilateral Eye EOMI HEENT: PERRL/EOMI, TMs Normal Neck: Full Range of Motion, Normal Inspection Respiratory: Normal Breath Sounds, No Accessory Muscle Use, No Respiratory Distress Cardiovascular: Regular Rate, Rhythm, Normal Peripheral Pulses Gastrointestinal: Non Tender, Soft, Other (Stoma in the left side of the upper abdomen. I'm unable to advance the jejunostomy tube back into this. I did gently tried to use a Matteo sound to dilate the stoma but again was still unable to pass the jejunostomy tube back into what I felt was the lumen of the bowel. Spoke with surgical nurse. Dr. Donahue is in surgery and will be down when he is finished.) Extremity: Normal Capillary Refill, Normal Inspection Neurologic/Psychiatric: Alert, Oriented x3, No Motor/Sensory Deficits Progress/Results/Core Measures Suspected Sepsis Recent Fever Within 48 Hours: No Infection Criteria Present: None New/Unexplained Altered Menta: No Sepsis Screen: No Definite Risk SIRS Temperature:98.5 Pulse: 67 Respiratory Rate: 16 Blood Pressure 107 /75 Mean: 86 Results/Orders My Orders Orders - INDIA HSIEH APRN Lidocaine 1% Inj 20 Ml (Xylocaine 1% Inj (03/07/18 11:30) Peg Tube Check (03/07/18 12:26) Medications Given in ED Vital Signs/I&O Capillary Refill : NONE Blood Pressure Mean: 86 Departure Communication (Admissions) 7919 03/08/18--I spoke with outpatient surgery clinic at the [facility]. I did arrange for an appointment for you to be seen on Sunday at [address] Varghese. PEG tube images on the cloud and I will fax the report now. Family Conversation After discussion with Dr. Cartwright from radiology it appears that the jejunostomy tube is in good position within the bowel lumen but it looks like the jejunum or small bowel is opacified and goes directly to the descending colon. Patient states that he has had the right side of his colon removed but he doesn't know why. Finally able to replace a 14 Malay jejunostomy tube new from surgery. Pediatric Carlock dilator was placed in the center of this is a stylette. Dr. Farmer was here to evaluate the patient and helped to dilate the tract as well. Impression Primary Impression: Jejunostomy tube fell out Disposition: 03 XFER SNF Condition: Improved Departure-Patient Inst. Decision time for Depature: 12:25 Referrals: ADRIANA CARTER DO (PCP/Family) Primary Care Physician Patient Instructions: How to Care for Your PEG Tube Add. Discharge Instructions: All discharge instructions reviewed with patient and/or family. Voiced understanding. Copy Copies To 1: ADRIANA CARTER PETER J APRN Mar 07, 2018 11:54
[2018-03-07 13:17] VITALS: BP 128/78
--- NOTE | 2018-03-07 13:33 | Diagnostic Imaging Report ---
INDICATION: Remove J tube. The study is performed for further evaluation. TECHNIQUE: 10 cc of Gastrografin contrast and 10 cc of water was injected through the patient's indwelling J-tube. Abdominal radiographs were then obtained. FINDINGS: Preliminary radiograph demonstrates tubing overlying the upper abdomen. Bowel gas pattern is unremarkable. Postinjection radiograph does show some opacified small bowel loops in the left upper quadrant. There is opacification of the descending colon. Findings are likely owing to prior surgery with small bowel left colon anastomosis. Surgical history correlation is recommended. No abnormal extravasation of contrast is seen. IMPRESSION: J-tube placement, as described. Dictated by: Dictated on workstation # [id number]
== END 2018-03-07 13:20 ==
LOC: EDUNIT# 10:58 → ER 10:59
DX: K94.29 Other complications of gastrostomy (principal); J44.9 Chronic obstructive pulmonary disease, unspecified; I10 Essential (primary) hypertension; E11.9 Type 2 diabetes mellitus without complications; F90.9 Attention-deficit hyperactivity disorder, unspecified type; E78.00 Pure hypercholesterolemia, unspecified; F17.210 Nicotine dependence, cigarettes, uncomplicated; Z87.19 Personal history of other diseases of the digestive system; Z86.73 Personal history of transient ischemic attack (TIA), and cerebral infarction without residual deficits
CPT/HCPCS: 43760; 49465

== ENCOUNTER 2018-03-18 11:09 | Emergency (ER) | payer OTHER ==
[~2018-03-18] VITALS: Ht 175.3 cm; Wt 86.2 kg
--- NOTE | 2018-03-18 13:17 | ED GI ---
General Chief Complaint: Catheter/Drain/Tube Problems Stated Complaint: G TUBE NEEDS PUT BACK IN Nursing Triage Note: PT AMB TO ROOM #6 W/O DIFFICULTY FROM TRIAGE. PT FROM [facility]. CO TUBE DISLODGEMENT FROM LT ABD. PT REPORTS HIS TUBE "FELL OUT." DENIES PULLING ON TUBE. SITE AROUND G-TUBE CLEAN DRY AND INTACT WITH NO REDDNESS NOTED. PT ALERT TO SELF AND SITUATION. NO STAFF FROM CARE FACILITY PRESENT. DENEIS PAIN. Sepsis Screen: No Definite Risk Source of Information: Patient Exam Limitations: No Limitations History of Present Illness Date Seen by Provider: Mar 18, 2018 Time Seen by Provider: 13:15 Initial Comments To ER from [facility] with reports that his jejunostomy tube has partially come out. Timing/Duration: 1-3 Hours Severity/Quality: Moderate Location: LUQ (left mid abdomen) Allergies and Home Medications Allergies Coded Allergies: No Known Drug Allergies (Unverified , 12/21/17) Home Medications Insulin Regular, Human 1,000 Units/10 Ml Soln, 25 UNITS SQ BID, (Reported) Patient Home Medication List Home Medication List Reviewed: Yes Review of Systems Review of Systems Constitutional: see HPI EENTM: No Symptoms Reported Respiratory: No Symptoms Reported Cardiovascular: No Symptoms Reported Gastrointestinal: See HPI Genitourinary: No Symptoms Reported Musculoskeletal: no symptoms reported Skin: no symptoms reported Psychiatric/Neurological: No Symptoms Reported Endocrine: No Symptoms Reported Hematologic/Lymphatic: No Symptoms Reported Past Tsxfzpi-Evninn-Pcxzeb Hx Patient Social History Type Used: Cigarettes 2nd Hand Smoke Exposure: No Recent Foreign Travel: No Contact w/Someone Who Travel: No Recent Infectious Disease Expo: No Recent Hopitalizations: No Seasonal Allergies Seasonal Allergies: No Past Medical History Surgeries: Yes (G-TUBE PLACEMENT) Abdominal, Gallbladder Respiratory: Yes COPD Cardiac: Yes High Cholesterol, Hypertension Neurological: Yes Stroke Genitourinary: No Gastrointestinal: Yes (GTube placement r/t swallowing difficulties) Hepatitis, Cirrhosis Musculoskeletal: No Endocrine: Yes Diabetes, Insulin dep HEENT: No Cancer: No Psychosocial: Yes ADD/ADHD Integumentary: No Family Medical History No Pertinent Family Hx Physical Exam Vital Signs Vital Signs - First Documented 03/18/18 12:50 Temp 96.9 Pulse 65 Resp 16 B/P (MAP) 141/74 (96) Pulse Ox 100 O2 Delivery Room Air Capillary Refill : Less Than 3 Seconds Height/Weight/BMI Height: 5'9.00" Weight: 190lbs. oz. 86.899158ev; BMI Method:Stated General Appearance: WD/WN, no apparent distress HEENT: PERRL/EOMI, normal ENT inspection Neck: non-tender, full range of motion Respiratory: no respiratory distress, no accessory muscle use Cardiovascular: regular rate, rhythm, no murmur Gastrointestinal: normal bowel sounds, soft, other (there is a jejunostomy partially in the stoma in the left mid abdomen. There is no bleeding around this. There is minimal erythema. One of the rubber flanges (there are 2 sets of these) is outside the stoma.) Extremities: normal range of motion, non-tender Neurologic/Psychiatric: alert, normal mood/affect, oriented x 3 Skin: normal color, warm/dry Progress/Results/Core Measures Results/Orders My Orders Orders - INDIA HSIEH APRN Peg Tube Check (03/18/18 13:14) Diatrizoate Meglum/Sodium 37% (Gastrogra (03/18/18 14:00) Lidocaine 1% Inj 20 Ml (Xylocaine 1% Inj (03/18/18 14:00) Medications Given in ED Current Medications Medications Dose Ordered Sig/Dangelo Route Start Time Stop Time Status Last Admin Dose Admin Diatrizoate Meglum/ Diatrizoate Sod 120 ml ONCE ONCE PO 03/18/18 14:00 03/18/18 14:01 DC 03/18/18 13:48 30 ML Vital Signs/I&O 03/18/18 12:50 Temp 96.9 Pulse 65 Resp 16 B/P (MAP) 141/74 (96) Pulse Ox 100 O2 Delivery Room Air Blood Pressure Mean: 96 Departure Communication (Admissions) Jejunostomy tube was secured in place with one single suture size 2-0 Ethilon Impression Primary Impression: jejunostomy tube check Disposition: 01 HOME, SELF-CARE Condition: Stable Departure-Patient Inst. Decision time for Depature: 13:54 Referrals: ADRIANA CARTER DO (PCP/Family) Primary Care Physician Patient Instructions: How to Care for Your PEG Tube Add. Discharge Instructions: All discharge instructions reviewed with patient and/or family. Voiced understanding. INDIA HSIEH APRN Mar 18, 2018 13:17
[2018-03-18] MEDS ORDERED: LIDOCAINE 1% INJ 20 ML 20 ML VIAL INJ ONE (14:00)
[2018-03-18] MEDS ORDERED: DIATRIZOATE MEGLUM/SODIUM 37% 120 ML (GASTROGRAFIN) PO ONE (14:00)
--- NOTE | 2018-03-18 14:27 | Diagnostic Imaging Report ---
Indication: PEG tube dislodged. 30 mL of Gastrografin and 30 mL of water was injected into the patient's enteric tube and compared with study from 03/07/2018. Preliminary radiograph demonstrates post surgical changes in the upper abdomen. Tubing overlies the abdomen. There is opacification of the hollow viscus upper abdomen which has the appearance of colon. This again may be owing to small bowel colon anastomosis in the upper abdomen, seen on prior study. No extravasated contrast is seen. Impression: No complicating features are detected. Dictated by: Dictated on workstation # [id number]
[2018-03-18 14:29] VITALS: BP 134/72
== END 2018-03-18 14:32 | disposition home or self-care (01) ==
LOC: EDUNIT# 11:09 → ER 11:09
DX: K94.23 Gastrostomy malfunction (principal); J44.9 Chronic obstructive pulmonary disease, unspecified; E78.00 Pure hypercholesterolemia, unspecified; I10 Essential (primary) hypertension; E11.9 Type 2 diabetes mellitus without complications; F90.9 Attention-deficit hyperactivity disorder, unspecified type; Z87.19 Personal history of other diseases of the digestive system; Z86.73 Personal history of transient ischemic attack (TIA), and cerebral infarction without residual deficits; Z79.4 Long term (current) use of insulin
CPT/HCPCS: 49465

== ENCOUNTER 2018-10-02 05:50 | Outpatient (CLI) | payer MEDICARE, MEDICAID ==
[~2018-10-02] VITALS: Ht 175.3 cm; Wt 78.9 kg
[~2018-10-02 05:50] MED LIST changes: -LORA10TA7; +LORA10TA7 PO; +LOSA50TA63 PO; -LOSA50TA7
[2018-10-02] MEDS ORDERED: ESCI10TA55 PO (12:18)
[2018-10-02] MEDS ORDERED: ALBU18HF2 INH (12:18)
[2018-10-02] MEDS ORDERED: FERR325T5 PO (12:18)
[2018-10-02] MEDS ORDERED: IPR14IN IH (12:18)
[2018-10-02] MEDS ORDERED: CYAN500T2 PO (12:18)
[2018-10-02] MEDS ORDERED: CHOL500044 PO (12:18)
== END 2018-10-02 12:19 | disposition home or self-care (01) ==
LOC: PREOP 05:50
PROVIDERS: ATTEND Specialist
DX: Z01.818 Encounter for other preprocedural examination (principal)

== ENCOUNTER 2018-10-04 08:35 | Day surgery (SDC) | payer MEDICARE, MEDICAID ==
[~2018-10-04] VITALS: Ht 175.3 cm; Wt 78.9 kg
[~2018-10-04 08:35] MED LIST changes: +ALBU18HF2 INH; +CHOL500044 PO; +CYAN500T2 PO; +ESCI10TA55 PO; +FERR325T5 PO; +IPR14IN IH
[2018-10-04 08:40] VITALS: BP 132/81
[2018-10-04] MEDS ORDERED: POVIDONE (BETADINE) OPHTH SOLN 5% 30 ML OP ONE (08:45)
[2018-10-04] MEDS ORDERED: TIMOLOL MALEATE 0.5% 5 ML (TIMOPTIC) BTL OU PRN (08:45)
[2018-10-04] MEDS ORDERED: LIDOCAINE PF 1% 2 ML AMP IR PRN (08:45)
[2018-10-04] MEDS ORDERED: MOXIFLOXACIN OPHTH SOLN 5 MG/ML 0.3 ML SYRINGE OP ONE (08:45)
[2018-10-04] MEDS: TETRACAINE 0.5% OPHTH SOLN 4 ML BTL (SINGLE DOSE ONLY) OU PRN ×4 (08:48→09:16)
[2018-10-04] MEDS: PHENYLEPHRINE 10% OPHTH (NEO-SYN) 5 ML BTL OU SCH ×3 (09:03→09:16)
[2018-10-04] MEDS: CYCLOPENTOLATE 1% (CYCLOGYL) 2 ML DROPS OP SCH ×3 (09:03→09:16)
[2018-10-04] MEDS ORDERED: MIDAZOLAM 2 MG/2 ML (VERSED) VIAL ONE (09:19)
--- NOTE | 2018-10-04 09:31 | Ophthalmologist Pre-Op Note ---
Pre-Operative Progress Note H&P Reviewed The H&P was reviewed, patient examined and no changes noted. Date H&P Reviewed: Oct 04, 2018 Time H&P Reviewed: 09:31 Pre-Op Dx Cataract, Right Eye MADDI GARCIA MD Oct 04, 2018 09:31
--- NOTE | 2018-10-04 09:52 | Ophthalmology Operative Report ---
Cataract removal/placement IOL PREOPERATIVE DIAGNOSIS: Cataract Right Eye POSTOPERATIVE DIAGNOSIS: Cataract Right Eye PROCEDURE: Cataract removal and placement of posterior chamber implant, right eye SURGEON: Bandar Garcia ANESTHESIA: Topical with sedation COMPLICATIONS: None ESTIMATED BLOOD LOSS: Minimal DESCRIPTION OF PROCEDURE: After proper informed consent was obtained, the patient, a 63 male, was taken to the Operating Room and the right eye was anesthetized with tetracaine. The right eye was then prepped and draped in the usual manner. A wire lid speculum was placed. A paracentesis was made at the left hand position. Preservative free lidocaine was injected into the anterior chamber followed by viscoelastic. A clear corneal incision was made in the temporal position. A capsulorrhexis was preformed and the central nuclear and cortical material were removed. The posterior capsule was polished and Chevy 25.0 [id number] IOL was placed into the capsular bag. The residual viscoelastic was aspirated and balanced saline solution was injected into the anterior chamber. Moxifloxacin was injected into the anterior chamber. The wound was checked and found to be water tight. The patient tolerated the procedure well without complications. BANDAR GARCIA MD Oct 04, 2018 09:52
[2018-10-04 10:15] VITALS: BP 130/79
[2018-10-04] MEDS ORDERED: acetaZOLAMIDE ER 500 MG CAP (DIAMOX SEQUELS) PO ONE (10:30)
== END 2018-10-04 10:15 | disposition home or self-care (01) ==
LOC: SDC 08:35
PROVIDERS: ATTEND Specialist
DX: H25.11 Age-related nuclear cataract, right eye (principal); E11.36 Type 2 diabetes mellitus with diabetic cataract; I10 Essential (primary) hypertension; J44.9 Chronic obstructive pulmonary disease, unspecified; F32.9 Major depressive disorder, single episode, unspecified; F17.210 Nicotine dependence, cigarettes, uncomplicated; Z79.4 Long term (current) use of insulin; Z79.899 Other long term (current) drug therapy
CPT/HCPCS: 82962

== ENCOUNTER 2018-10-16 05:42 | Outpatient (CLI) | payer MEDICARE, MEDICAID ==
[~2018-10-16 05:42] MED LIST changes: -CYAN100T; +CYAN100T3
== END 2018-10-16 12:45 | disposition home or self-care (01) ==
LOC: PREOP 05:42
PROVIDERS: ATTEND Specialist
DX: Z01.818 Encounter for other preprocedural examination (principal)

== ENCOUNTER 2018-11-01 07:23 | Day surgery (SDC) | payer MEDICARE, MEDICAID ==
[~2018-11-01] VITALS: Ht 175.3 cm; Wt 78.9 kg
[~2018-11-01 07:23] MED LIST changes: +acetaZOLAMIDE ER 500 MG CAP (DIAMOX SEQUELS) PO ONE
[2018-11-01 07:25] VITALS: BP 123/84
[2018-11-01] MEDS ORDERED: TIMOLOL MALEATE 0.5% 5 ML (TIMOPTIC) BTL OU PRN (07:30)
[2018-11-01] MEDS ORDERED: POVIDONE (BETADINE) OPHTH SOLN 5% 30 ML OP ONE (07:30)
[2018-11-01] MEDS ORDERED: MOXIFLOXACIN OPHTH SOLN 5 MG/ML 0.3 ML SYRINGE OP ONE (07:30)
[2018-11-01] MEDS ORDERED: LIDOCAINE PF 1% 2 ML AMP IR PRN (07:30)
[2018-11-01] MEDS ORDERED: MIDAZOLAM 2 MG/2 ML (VERSED) VIAL ONE (07:33)
[2018-11-01] MEDS: TETRACAINE 0.5% OPHTH SOLN 4 ML BTL (SINGLE DOSE ONLY) OU PRN ×4 (07:34→07:59)
[2018-11-01] MEDS ORDERED: RT-ALBUTEROL SULF 2.5 MG/3 ML PRE-MIX VIAL ONE (07:37)
[2018-11-01] MEDS: CYCLOPENTOLATE 1% (CYCLOGYL) 2 ML DROPS OP SCH ×3 (07:45→07:59)
[2018-11-01] MEDS: PHENYLEPHRINE 10% OPHTH (NEO-SYN) 5 ML BTL OU SCH ×3 (07:45→07:59)
--- NOTE | 2018-11-01 07:45 | Ophthalmologist Pre-Op Note ---
Pre-Operative Progress Note H&P Reviewed The H&P was reviewed, patient examined and no changes noted. Date H&P Reviewed: November 01, 2018 Time H&P Reviewed: 07:45 Pre-Op Dx Cataract, Left Eye MADDI GARCIA MD November 01, 2018 07:45
--- NOTE | 2018-11-01 08:27 | Ophthalmology Operative Report ---
Cataract removal/placement IOL PREOPERATIVE DIAGNOSIS: Cataract Left Eye POSTOPERATIVE DIAGNOSIS: Cataract Left Eye PROCEDURE: Cataract removal and placement of posterior chamber implant, left eye SURGEON: Bandar Garcia ANESTHESIA: Topical with sedation COMPLICATIONS: None ESTIMATED BLOOD LOSS: Minimal DESCRIPTION OF PROCEDURE: After proper informed consent was obtained, the patient, a 63 male, was taken to the Operating Room and the left eye was anesthetized with tetracaine. The left eye was then prepped and draped in the usual manner. A wire lid speculum was placed. A paracentesis was made at the left hand position. Preservative free lidocaine was injected into the anterior chamber followed by viscoelastic. A clear corneal incision was made in the temporal position. A capsulorrhexis was preformed and the central nuclear and cortical material were removed. The posterior capsule was polished and an Chevy 26.0 AU00T0 was placed into the capsular bag. The residual viscoelastic was aspirated and balanced saline solution was injected into the anterior chamber. Moxifloxacin was injected into the anterior chamber. The wound was checked and found to be water tight. The patient tolerated the procedure well without complications. BANDAR GARCIA MD November 01, 2018 08:27
[2018-11-01 08:35] VITALS: BP 119/77
--- NOTE | 2018-11-01 10:37 | Anesthesia-General Post-Op ---
MAC Patient Condition Mental Status/LOC: Same as Preop Cardiovascular: Satisfactory Nausea/Vomiting: Absent Respiratory: Satisfactory Pain: Controlled Complications: Absent Post Op Complications Complications None Follow Up Care/Instructions Patient Instructions None needed. Anesthesiology Discharge Order Discharge Order Patient was seen after the procedure and he was doing well, no complaints, stable vital signs, no apparent adverse anesthesia problems. MIGUEL CHEEK DO November 01, 2018 10:37
== END 2018-11-01 08:35 | disposition home or self-care (01) ==
LOC: SDC 07:23
PROVIDERS: ATTEND Specialist
DX: H25.12 Age-related nuclear cataract, left eye (principal); E11.36 Type 2 diabetes mellitus with diabetic cataract; I10 Essential (primary) hypertension; J44.9 Chronic obstructive pulmonary disease, unspecified; F17.210 Nicotine dependence, cigarettes, uncomplicated; Z79.4 Long term (current) use of insulin; Z79.899 Other long term (current) drug therapy; Z98.84 Bariatric surgery status
CPT/HCPCS: 82962

== ENCOUNTER → 2019-04-03 | Outpatient (CLI) | payer MEDICARE, MEDICAID ==
[~2019-04-03] MED LIST changes: -CYAN500T2 PO; +CYAN500T62 PO; -acetaZOLAMIDE ER 500 MG CAP (DIAMOX SEQUELS) PO ONE
--- NOTE | 2019-04-03 15:11 | Diagnostic Imaging Report ---
PROCEDURE: CT abdomen and pelvis without contrast. TECHNIQUE: Multiple contiguous axial images were obtained through the abdomen and pelvis without the use of intravenous contrast. Auto Exposure Controls were utilized during the CT exam to meet ALARA standards for radiation dose reduction. INDICATION: Abdominal hernia COMPARISON: There are no prior studies available for comparison. FINDINGS: There is thinning of the upper anterior wall abdominal musculature just to the left of midline roughly 13 cm cephalad to the level of the umbilicus. There are several segments of large and small bowel in this region but there is no definite defect in the anterior abdominal wall to indicate a hernia. However the distance between the skin and the bowel is less than 2 mm at the point of maximum distention. There is no incarceration or obstruction of the bowel either. There is fluid within the stomach and there are multiple surgical clips about the stomach. There is no sign of a mass in the region of the gastric outlet however. There may be a few small calculi within the gallbladder. There is no evidence for acute cholecystitis. The liver, spleen, pancreas, adrenals, aorta and inferior vena cava are unremarkable for an acute abnormality. There is a 1.8 cm calcified soft tissue density arising from the superior pole of the right kidney. This is of uncertain etiology although most likely a benign process. The right kidney is otherwise unremarkable. The left kidney is not visualized and may be either surgically absent or congenitally absent. Correlation with patient's history would be recommended. The images through the low pelvis fail to show any sign of an inguinal hernia. The urinary bladder and prostate gland are grossly unremarkable. However there is a 1.7 x 2.6 cm soft tissue density in the region of the right seminal vesicle. There is no corresponding abnormality seen on the left. The possibility that there is a neoplastic mass involving the seminal vesicle on the right should certainly be considered. A urologic consult would be recommended. The appendix was not well visualized but there are no indirect signs of acute appendicitis. There may be a few diverticula in the sigmoid colon but there is no evidence for acute diverticulitis. The bone windows show no sign of a fracture or of a destructive lesion. The lung bases are clear. IMPRESSION: 1. The upper anterior abdominal wall musculature is thinned and this does result in segments of large and small bowel extending into this area. There is no david hernia identified however. There is no incarceration or obstruction of the bowel either. 2. The soft tissue density in the region of the right seminal vesicle is worrisome for neoplasm. Urologic consult would be recommended. 3. There is no acute abnormality of the abdomen or pelvis noted otherwise. 4. The left kidney is not identified and may be surgically absent. 5. There are extensive postsurgical changes involving the stomach. 6. These results were discussed with Dr. CLAY. Dictated by: Dictated on workstation # [id number]
== END ==
LOC: RAD 12:38
PROVIDERS: ATTEND Surgery
DX: K45.8 Other specified abdominal hernia without obstruction or gangrene (principal); Z98.890 Other specified postprocedural states
CPT/HCPCS: 74176

== ENCOUNTER → 2022-01-23 | Outpatient (CLI) | payer MEDICARE, MEDICAID ==
[~2022-01-23] MED LIST changes: -CYAN100T3; +CYAN100T37; -CYAN500T62 PO; +CYAN500T8 PO; +ESCI-2 PO; -ESCI10TA55 PO; -FOLI1TAB24 PO; +FOLI1TAB33 PO
[2022-01-23 13:55] LABS: HEMOGLOBIN 13.8 g/dL (13.3-17.7)
[2022-01-23 13:56] LABS: WHITE BLOOD COUNT 5.6 10^3/uL (4.3-11.0)
[2022-01-23 14:11] LABS: ALBUMIN 4.1 GM/DL (3.2-4.5); BILIRUBIN,TOTAL 0.5 MG/DL (0.1-1.0); CALCIUM 9.4 MG/DL (8.5-10.1); CREATININE SERUM 0.92 MG/DL (0.60-1.30)
--- NOTE | 2022-01-23 14:50 | Diagnostic Imaging Report ---
INDICATION: Dyspnea and fatigue PA and lateral views of the chest are obtained. FINDINGS: Heart size and pulmonary vascularity are within normal limits, and the lungs are clear, bilaterally. IMPRESSION: Unremarkable chest. Dictated by: Dictated on workstation # [id number]
== END ==
LOC: RAD 13:30
PROVIDERS: ATTEND Family Medicine
DX: J44.9 Chronic obstructive pulmonary disease, unspecified (principal)
CPT/HCPCS: 36415; 71046; 80053; 83880; 85027

== ENCOUNTER 2022-09-07 21:39 | Inpatient (IN) | payer MEDICARE, MEDICAID ==
[~2022-09-07] VITALS: Ht 175.3 cm; Wt 92.8 kg
[2022-09-07] MEDS ORDERED: RT-ALBUTEROL/IPRATROPIUM 3 ML (DUONEB) VIAL INH ONE (21:45)
[2022-09-07] MEDS ORDERED: methylPREDNISolone 125 MG (Solu-MEDROL) VIAL IVP ONE (21:45)
--- NOTE | 2022-09-07 21:50 | ED Respiratory ---
General Chief Complaint: Respiratory Problems Stated Complaint: FEVER/RESP DISTRESS Nursing Triage Note: PT TO [facility]IA [facility] FROM [facility] W C/O SOA/LABORED BREATHING X2 WKS, FEVER SX THIS AM. PT A&OX4. 3LNC HOME O2 AT ALL TIMES, 20G L HAND SL INITIATED BY [facility] PATENT UPON ARRIVAL TO ED. Source: patient, EMS Exam Limitations: no limitations History of Present Illness Date Seen by Provider: Sep 07, 2022 Time Seen by Provider: 21:40 Initial Comments 67-year-old male presents to the emergency department today for shortness of breath from [facility] Nursing facility states that he has been short of breath for 2 weeks and that he "just got tired of breathing heavy." On arrival patient complains that he cannot seem to catch his breath. He states symptoms present for the last 2 days associated with fever. He tells me he was given Tylenol 2 hours prior to arrival. He does have COPD and is on oxygen 3 to 4 L via nasal cannula [id number] and has not had to increase this. He has a chronic productive cough and is bringing up a bit more mucus than normal according to his report. He denies any chest pain, abdominal pain or changes in bowel or bladder habits. All other systems reviewed and negative except documented per HPI. Voice recognition software was used to help create this chart Allergies and Home Medications Allergies Coded Allergies: No Known Drug Allergies (Unverified , 12/21/17) Patient Home Medication List Home Medication List Reviewed: Yes Albuterol Sulfate (Ventolin Hfa) 18 Gm Hfa.aer.ad, 2 PUFF INH Q6H PRN for WHEEZING, (Reported) Entered as Reported by: SAPPHIRE ELLIOTT on 10/02/18 1218 Calcium Cit/Mag/D3/Zn/Division Order Analyst/Zeus (Calcium Citrate Plus Tablet) 1 Each Tablet, 1 EACH PO BID, (Reported) Entered as Reported by: EDEN CHILEL on 12/21/17 0647 Cholecalciferol (Vitamin D3) (Vitamin D3) 5,000 Unit Tablet, 5,000 UNIT PO DAILY, (Reported) Entered as Reported by: SAPPHIRE ELLIOTT on 10/02/18 1218 Cyanocobalamin (Vitamin B-12) (Vitamin B-12) 500 Mcg Tablet, 500 MCG PO DAILY, (Reported) Entered as Reported by: SAPPHIRE ELLIOTT on 10/02/181217 Doxazosin Mesylate (Cardura) 2 Mg Tablet, 2 MG PO DAILY, (Reported) Entered as Reported by: EDEN CHILEL on 12/21/17646 Escitalopram Oxalate (Escitalopram Oxalate) 10 Mg Tablet, 10 MG PO DAILY, (Reported) Entered as Reported by: SAPPHIRE ELLIOTT on 10/02/181217 Ferrous Sulfate (Ferrous Sulfate) 325 Mg Tablet.dr, 325 MG PO BID, (Reported) Entered as Reported by: SAPPHIRE ELLIOTT on 10/02/181217 Folic Acid (Folic Acid) 1 Mg Tablet, 1 MG PO DAILY, (Reported) Entered as Reported by: EDEN CHILEL on 12/21/17646 Insulin Regular, Human (Humulin R) 1,000 Units/10 Ml Soln, 0 SQ BID SLIDING SCALE PRN for SLIDING SCALE, (Reported) Entered as Reported by: EDEN CHILEL on 12/21/17646 Ipratropium [place] (Atrovent Hfa) 12.9 Gm Aers, 1 PUFF IH QID, (Reported) Entered as Reported by: SAPPHIRE ELLIOTT on 10/02/181217 Loratadine (Loratadine) 10 Mg Tablet, 10 MG PO DAILY, (Reported) Entered as Reported by: EDEN CHILEL on 12/21/17646 Losartan Potassium (Losartan Potassium) 50 Mg Tablet, 50 MG PO DAILY, (Reported) Entered as Reported by: EDEN CHILEL on 12/21/17646 Methylphenidate HCl (Ritalin) 5 Mg Tablet, 2.5 MG PO BID, (Reported) Entered as Reported by: EDEN CHILEL on 12/21/17646 Multivitamin with Minerals (Multivitamins with Minerals) 1 Each Tablet, 1 EACH PO, (Reported) Entered as Reported by: EDEN CHILEL on 12/21/17646 Review of Systems Review of Systems Constitutional: fever Past Ddukxvb-Poccvp-Wtrmye Hx Patient Social History Tobacco Use?: No Smoking Status: Former Smoker Use of E-Cig and/or Vaping dev: No Substance use?: No Alcohol Use?: No Immunizations Up To Date Influenza Vaccine Up-to-Date: Yes; Up-to-Date First/Initial COVID19 Vaccinat: 2020 Second COVID19 Vaccination Fer: 2020 Third COVID19 Vaccination Date: 2020 COVID19 Vaccine Stripe Matcher: UNK PER PT Seasonal Allergies Seasonal Allergies: No Past Medical History Surgeries: Yes (G-TUBE PLACEMENT) Abdominal, Gallbladder Respiratory: Yes COPD Cardiac: Yes High Cholesterol, Hypertension Neurological: Yes Stroke Genitourinary: No Gastrointestinal: Yes (GTube placement r/t swallowing difficulties) Hepatitis, Cirrhosis Musculoskeletal: No Endocrine: Yes Diabetes, Insulin dep HEENT: No Cancer: No Psychosocial: Yes (BEHAVIORS) ADD/ADHD Integumentary: No Blood Disorders: No Adverse Reaction/Blood Tranf: No (NA) Family Medical History Reviewed Nursing Family Hx No Pertinent Family Hx Physical Exam Vital Signs - First Documented 09/07/22 21:40 Temp 38.6 Pulse 108 Resp 44 B/P (MAP) 161/86 (111) Pulse Ox 99 O2 Delivery Nasal Cannula O2 Flow Rate 4.00 Capillary Refill : Height: 5'9.00" Weight: 174lbs. 0.0oz. 78.253468bp; 32.00 BMI Method:Stated General Appearance: WD/WN, moderate distress (respiratory) HEENT: normal ENT inspection, pharynx normal Neck: non-tender, supple, normal inspection Respiratory: other (Moderate respiratory distress with use of accessory muscles. Bilateral wheezing inspiratory and expiratory.) Cardiovascular: no edema, no murmur, tachycardia Gastrointestinal: normal bowel sounds, non tender, soft, no organomegaly Neurologic/Psychiatric: alert, normal mood/affect, oriented x 3 Skin: normal color, warm/dry Focused Exam Lactate Level 09/07/22 21:53: Lactic Acid Level 0.74 Lactic Acid Level Laboratory Tests Test 09/07/22 21:53 Lactic Acid Level 0.74 MMOL/L (0.50-2.00) Progress/Results/Core Measures Suspected Sepsis SIRS Temperature: Pulse: 108 Respiratory Rate: 44 Laboratory Tests 09/07/22 21:53: White Blood Count 5.8 Blood Pressure 161 /86 Mean: 111 09/07/22 21:53: Lactic Acid Level 0.74 Laboratory Tests 09/07/22 21:53: Creatinine 0.88, INR Comment 1.1, Platelet Count 125L, Total Bilirubin 0.8 Results/Orders Lab Results Laboratory Tests Test 09/07/22 21:48 09/07/22 21:53 Range/Units Influenza Type A (RT-PCR) Not Detected Not Detecte Influenza Type B (RT-PCR) Not Detected Not Detecte SARS-CoV-2 RNA (RT-PCR) Not Detected Not Detecte White Blood Count 5.8 4.3-11.0 10^3/uL Red Blood Count 4.04 L 4.30-5.52 10^6/uL Hemoglobin 12.8 L 13.3-17.7 g/dL Hematocrit 38 L 40-54 % Mean Corpuscular Volume 94 80-99 fL Mean Corpuscular Hemoglobin 32 25-34 pg Mean Corpuscular Hemoglobin Concent 34 32-36 g/dL Red Cell Distribution Width 12.7 10.0-14.5 % Platelet Count 125 L 130-400 10^3/uL Mean Platelet Volume 9.7 9.0-12.2 fL Immature Granulocyte % (Auto) 0 % Neutrophils (%) (Auto) 83 H 42-75 % Lymphocytes (%) (Auto) 8 L 12-44 % Monocytes (%) (Auto) 8 0-12 % Eosinophils (%) (Auto) 0 0-10 % Basophils (%) (Auto) 0 0-10 % Neutrophils # (Auto) 4.8 1.8-7.8 10^3/uL Lymphocytes # (Auto) 0.5 L 1.0-4.0 10^3/uL Monocytes # (Auto) 0.4 0.0-1.0 10^3/uL Eosinophils # (Auto) 0.0 0.0-0.3 10^3/uL Basophils # (Auto) 0.0 0.0-0.1 10^3/uL Immature Granulocyte # (Auto) 0.0 0.0-0.1 10^3/uL Percent Immature Platelet Fraction 2.7 0.0-7.6 % Prothrombin Time 14.2 12.2-14.7 SEC INR Comment 1.1 0.8-1.4 Activated Partial Thromboplast Time 33 24-35 SEC Sodium Level 139 135-145 MMOL/L Potassium Level 3.3 L 3.6-5.0 MMOL/L Chloride Level 101 98-107 MMOL/L Carbon Dioxide Level 26 21-32 MMOL/L Anion Gap 12 5-14 MMOL/L Blood Urea Nitrogen 9 7-18 MG/DL Creatinine 0.88 0.60-1.30 MG/DL Estimat Glomerular Filtration Rate 94 BUN/Creatinine Ratio 10 Glucose Level 117 H 70-105 MG/DL Lactic Acid Level 0.74 0.50-2.00 MMOL/L Calcium Level 9.1 8.5-10.1 MG/DL Corrected Calcium 9.0 8.5-10.1 MG/DL Total Bilirubin 0.8 0.1-1.0 MG/DL Aspartate Amino Transf (AST/SGOT) 20 5-34 U/L Alanine Aminotransferase (ALT/SGPT) 14 0-55 U/L Alkaline Phosphatase 71 40-136 U/L Troponin I < 0.028 <0.028 NG/ML Total Protein 7.0 6.4-8.2 GM/DL Albumin 4.1 3.2-4.5 GM/DL Smear Scan YES My Orders Orders - SAKINASTEPHANIE DO Cbc With Automated Diff (09/07/22 21:45) Comprehensive Metabolic Panel (09/07/22 21:45) Blood Culture (09/07/22 21:45) Protime With Inr (09/07/22 21:45) Partial Thromboplastin Time (09/07/22 21:45) Chest 1 View, Ap/Pa Only (09/07/22 21:45) Ed Iv/Invasive Line Start (09/07/22 21:45) Ekg Tracing (09/07/22 21:45) Vital Signs Adult Sepsis Patie Q15M (09/07/22 21:45) O2 (09/07/22 21:45) Remove Rings In Anticipation O (09/07/22 21:45) Lactic Acid Analyzer (09/07/22 21:45) Ua Culture If Indicated (09/07/22 21:45) Troponin I [place] (09/07/22 21:45) Albuterol/Ipra Inhalation Soln (Duoneb I (09/07/22 21:45) Methylprednisolone Sod Succ (Solu-Medrol (09/07/22 21:45) Svn Small Volume Nebulizer (09/07/22 21:45) Covid 19 Inhouse Test (09/07/22 21:50) Influenza A And B By Pcr (09/07/22 21:48) Piperacillin Sodium/Tazobactam (Zosyn Vi (09/07/22 22:45) Ed Admission (Communication) (09/07/22 22:35) Medications Given in ED Current Medications Medications Dose Ordered Sig/Dangelo Route Start Time Stop Time Status Last Admin Dose Admin Albuterol/ Ipratropium 3 ml ONCE ONCE INH 09/07/22 21:45 09/07/22 21:48 DC 09/07/22 22:06 3 ML Methylprednisolone Sodium Succinate 125 mg ONCE ONCE IVP 09/07/22 21:45 09/07/22 21:48 DC 09/07/22 22:02 125 MG Piperacillin Sod/ Tazobactam Sod 4.5 gm/Sodium Chloride 100 ml @ 200 mls/hr ONCE ONCE IV 09/07/22 22:45 09/07/22 23:14 DC 09/07/22 22:53 200 MLS/HR Vital Signs/I&O 09/07/22 09/07/22 09/07/22 21:40 21:40 22:07 Temp 38.6 Pulse 108 Resp 44 B/P (MAP) 161/86 (111) Pulse Ox 99 98 98 O2 Delivery Nasal Cannula Nasal Cannula O2 Flow Rate 4.00 4.00 4.00 Capillary Refill : Blood Pressure Mean: 111 ECG Comment Plan admit interpretation EKG shows sinus tachycardia 109 bpm. Intervals. Left axis deviation. No ST or T wave abnormalities. No ectopy. Baseline interference leads II and III. No STEMI. Critical Care Note Critical Care Total Time (minutes) 45 Departure Communication (Admissions) Spoke with Dr Galarza who accepts the patient in admission. Patient was initially in significant resp distress, started on BiPap with significant improvement. He was given duoneb treatment and solu medrol. CXR shows subtle infiltrate RML on my independent read, started on zosyn and vanc. WBC normal but does have a left shift. metabolic panel is normal as is his lactic acid. No hypotension, no evidence of septic shock. He is febrile. He is admitted to ICU in otherwise stable condition. Impression Primary Impression: Respiratory failure Qualified Codes: J96.00 - Acute respiratory failure, unspecified whether with hypoxia or hypercapnia Additional Impressions: COPD exacerbation HAP (hospital-acquired pneumonia) Disposition: ADMITTED INPATIENT Condition: Stable Admissions Decision to Admit Reason: Admit from ER (General) Departure-Patient Inst. Referrals: ADRIANA CARTER DO (PCP/Family) Primary Care Physician STEPHANIE PRESLEY DO Sep 07, 2022 21:50
[2022-09-07 22:05] LABS: BASOPHILS % (AUTO) 0 % (0-10); EOSINOPHILS % (AUTO) 0 % (0-10); LYMPHOCYTES # (AUTO) 0.5 10^3/uL (1.0-4.0); LYMPHOCYTES % (AUTO) 8 % (12-44); MEAN CORPUSCULAR VOLUME 94 fL (80-99)
[2022-09-07 22:07] LABS: HEMATOCRIT 38 % (40-54); HEMOGLOBIN 12.8 g/dL (13.3-17.7); MEAN CORPUSCULAR HEMOGLOBIN 32 pg (25-34); MEAN CORPUSCULAR HGB CONC 34 g/dL (32-36); MEAN PLATELET VOLUME 9.7 fL (9.0-12.2); MONOCYTES # (AUTO) 0.4 10^3/uL (0.0-1.0); MONOCYTES % (AUTO) 8 % (0-12); NEUTROPHILS # (AUTO) 4.8 10^3/uL (1.8-7.8); NEUTROPHILS % (AUTO) 83 % (42-75); PLATELET COUNT 125 10^3/uL (130-400); WHITE BLOOD COUNT 5.8 10^3/uL (4.3-11.0)
[2022-09-07 22:11] LABS: SMEAR SCAN COMMENT YES
[2022-09-07 22:14] LABS: ALBUMIN 4.1 GM/DL (3.2-4.5)
[2022-09-07 22:15] LABS: CHLORIDE 101 MMOL/L (98-107); POTASSIUM 3.3 MMOL/L (3.6-5.0); SODIUM 139 MMOL/L (135-145)
[2022-09-07 22:16] LABS: CALCIUM 9.1 MG/DL (8.5-10.1)
[2022-09-07 22:17] LABS: GLUCOSE 117 MG/DL (70-105)
[2022-09-07 22:18] LABS: CARBON DIOXIDE 26 MMOL/L (21-32)
[2022-09-07 22:19] LABS: BILIRUBIN,TOTAL 0.8 MG/DL (0.1-1.0)
[2022-09-07 22:20] LABS: ALKALINE PHOSPHATASE 71 U/L (40-136)
[2022-09-07 22:21] LABS: CREATININE SERUM 0.88 MG/DL (0.60-1.30); GFR ESTIMATED 94
[2022-09-07 22:22] LABS: BUN/CREATININE RATIO 10
[2022-09-07 22:24] LABS: ALANINE AMINOTRANSFERASE 14 U/L (0-55)
[2022-09-07 22:35] LABS: INR 1.1 (0.8-1.4); PROTHROMBIN TIME PATIENT 14.2 SEC (12.2-14.7)
[2022-09-07] MEDS ORDERED: PIPERACILLIN SODIUM/TAZOBACTAM 4.5 GM in NS (IVPB) 100 ML IV ONE (22:45)
[2022-09-08 00:02] VITALS: BP 129/78
[2022-09-08] MEDS ORDERED: NS IV 500 ML 500 ML IV PRN (00:15)
[2022-09-08] MEDS ORDERED: RT-ALBUTEROL/IPRATROPIUM 3 ML (DUONEB) VIAL INH PRN (00:30)
[2022-09-08] MEDS: ACETAMINOPHEN 500 MG TAB (TYLENOL) PO PRN (01:07)
[2022-09-08] MEDS: AZITHROMYCIN INJECTION 500 MG in NS (IVPB) 250 ML IV SCH (01:08)
[2022-09-08] MEDS: POTASSIUM CL 10MEQ/50ML IVPB 50 ML IV SCH ×3 (01:10→04:50)
[2022-09-08] MEDS ORDERED: RT-ALBUTEROL/IPRATROPIUM 3 ML (DUONEB) VIAL INH SCH (02:00)
[2022-09-08 02:28] VITALS: BP 140/75
[2022-09-08] MEDS: RT-ALBUTEROL/IPRATROPIUM 3 ML (DUONEB) VIAL INH SCH ×6 (02:28→22:49)
[2022-09-08 04:35] LABS: EOSINOPHILS % (AUTO) 0 % (0-10); MONOCYTES # (AUTO) 0.1 10^3/uL (0.0-1.0); MONOCYTES % (AUTO) 2 % (0-12)
[2022-09-08 04:37] LABS: BASOPHILS % (AUTO) 0 % (0-10); HEMATOCRIT 37 % (40-54); HEMOGLOBIN 12.4 g/dL (13.3-17.7); LYMPHOCYTES # (AUTO) 0.4 10^3/uL (1.0-4.0); LYMPHOCYTES % (AUTO) 7 % (12-44); MEAN CORPUSCULAR HEMOGLOBIN 32 pg (25-34); MEAN CORPUSCULAR HGB CONC 33 g/dL (32-36); MEAN CORPUSCULAR VOLUME 95 fL (80-99); MEAN PLATELET VOLUME 10.2 fL (9.0-12.2); NEUTROPHILS # (AUTO) 4.6 10^3/uL (1.8-7.8); NEUTROPHILS % (AUTO) 91 % (42-75); PLATELET COUNT 124 10^3/uL (130-400); WHITE BLOOD COUNT 5.1 10^3/uL (4.3-11.0)
[2022-09-08 04:47] LABS: ALBUMIN 3.9 GM/DL (3.2-4.5); POTASSIUM 3.6 MMOL/L (3.6-5.0)
[2022-09-08 04:48] LABS: CALCIUM 9.1 MG/DL (8.5-10.1)
[2022-09-08 04:50] LABS: TOTAL PROTEIN 6.6 GM/DL (6.4-8.2)
[2022-09-08] MEDS: KCL 20 MEQ TAB (K-DUR) PO SCH (04:50)
[2022-09-08 04:51] LABS: BILIRUBIN,TOTAL 0.7 MG/DL (0.1-1.0)
[2022-09-08 04:53] LABS: CREATININE SERUM 1.15 MG/DL (0.60-1.30); PHOSPHORUS 3.5 MG/DL (2.3-4.7)
[2022-09-08 04:56] LABS: MAGNESIUM 1.7 MG/DL (1.6-2.4)
[2022-09-08] MEDS ORDERED: KCL 20 MEQ TAB (K-DUR) PO ONE (05:00)
[2022-09-08] MEDS: MAGNESIUM 1 GM/100 ML IVPB 100 ML IV SCH ×4 (05:18→08:24)
[2022-09-08 05:33] LABS: ANISOCYTOSIS SLIGHT; BAND NEUTROPHILS 1 %; LYMPHOCYTES % (MANUAL) 3 %; MONOCYTES % (MANUAL) 2 %; NEUTROPHILS % (MANUAL) 93 %
[2022-09-08] MEDS: methylPREDNISolone 40 MG/ML (Solu-MEDROL) VIAL IV SCH ×3 (05:51→21:40)
[2022-09-08] MEDS: PIPERACILLIN SODIUM/TAZOBACTAM 4.5 GM in NS (IVPB) 100 ML IV SCH ×3 (05:54→20:42)
[2022-09-08] MEDS: CATHETER FLUSH 10 ML SYR IVP SCH ×3 (06:23→21:40)
--- NOTE | 2022-09-08 06:26 | Diagnostic Imaging Report ---
INDICATION: Shortness of breath Portable chest 10:30 PM Heart size and pulmonary vascularity are normal. Lungs are clear. There are no effusions or pneumothoraces. IMPRESSION: Negative chest Dictated by: Dictated on workstation # [id number]
[2022-09-08 07:33] VITALS: BP 100/64
--- NOTE | 2022-09-08 08:58 | Tele-ICU Consult ---
MARIANA FRANCO 09/08/22 0858: History of Present Illness History of Present Illness Date Seen by Provider: Sep 08, 2022 Time Seen by Provider: 07:45 Date of Admission Reason for Visit: acute on chronic respiratory failure History of Present Illness 67 year old male with history of COPD, hyperlipidemia, hpertension, CVA, hepatitis, cirrhosis, and diabetes who presented to the ED from [facility] last night for fever and SOB. He reports having increased SOB for the past two weeks that was markedly worse for the past two days along with fever. He reports using 3-4L supplemental O2 intermittently at home. He denies productive cough at home. In the ED he was treated for COPD exacerbation with duoneb, solumedrol, and BiPAP. There was also worries of a possible pneumonia for which he was started on zosyn and azithromycin for. The CXR read has since come back negative for signs of acute pulmonary or cardiac abnormalities. Allergies and Home Medications Allergies Coded Allergies: No Known Drug Allergies (Unverified , 12/21/17) Home Medications Albuterol Sulfate 18 Gm Hfa.aer.ad, 2 PUFF INH Q6H PRN for WHEEZING, (Reported) Calcium Cit/Mag/D3/Zn/Chocolate Temperer/Zeus 1 Each Tablet, 1 EACH PO BID, (Reported) Cholecalciferol (Vitamin D3) 5,000 Unit Tablet, 5,000 UNIT PO DAILY, (Reported) Cyanocobalamin (Vitamin B-12) 500 Mcg Tablet, 500 MCG PO DAILY, (Reported) Doxazosin Mesylate 2 Mg Tablet, 2 MG PO DAILY, (Reported) Escitalopram Oxalate 10 Mg Tablet, 10 MG PO DAILY, (Reported) Ferrous Sulfate 325 Mg Tablet.dr, 325 MG PO BID, (Reported) Folic Acid 1 Mg Tablet, 1 MG PO DAILY, (Reported) Insulin Regular, Human 1,000 Units/10 Ml Soln, 0 SQ BID SLIDING SCALE PRN for SLIDING SCALE, (Reported) Ipratropium [place] 12.9 Gm Aers, 1 PUFF IH QID, (Reported) Loratadine 10 Mg Tablet, 10 MG PO DAILY, (Reported) Losartan Potassium 50 Mg Tablet, 50 MG PO DAILY, (Reported) Methylphenidate HCl 5 Mg Tablet, 2.5 MG PO BID, (Reported) TAKE 1/2 OF 5MG TAB Past Medical/Social/Family Hx Patient Social History Tobacco Use?: No Smoking Status: Former Smoker Use of E-Cig and/or Vaping dev: No Substance use?: No Alcohol Use?: No Immunizations Up To Date Influenza Vaccine Up-to-Date: Yes; Up-to-Date First/Initial COVID19 Vaccinat: 2020 Second COVID19 Vaccination Fer: 2020 Current Status Advance Directives: Unable to obtain Communicates: Verbally Primary Language: Chadian Preferred Spoken Language: Chadian Is interpretation needed?: No Past Medical History Hyperlipidemia Hypertension COPD CVA Hepatitis (treated) Cirrhosis DM type 2 Family Medical History Family Hx: No pertinent history reported Review of Systems Constitutional: fever, weakness (generalized) EENTM: No hearing loss, No vision loss Respiratory: cough, short of breath Cardiovascular: No chest pain, No palpitations Gastrointestinal: No abdominal pain, No nausea, No vomiting Genitourinary: No dysuria, No hematuria Musculoskeletal: no symptoms reported Skin: no symptoms reported Psychiatric/Neurological: No Symptoms Reported Focused Exam Lactate Level 09/07/22 21:53: Lactic Acid Level 0.74 Height, Weight, BMI Height: 5'9.00" Weight: 174lbs. 0.0oz. 78.214468rh; 30.29 BMI Method:Stated Exam Exam Patient acknowledged, consented, and participated in this virtual visit which was conducted using real time audio/video Vital Signs Date Time Temp Pulse Resp B/P (MAP) Pulse Ox O2 Delivery O2 Flow Rate FiO2 09/08/22 08:36 Nasal Cannula 4.00 09/08/22 08:00 97 NIV Bilevel 45 09/08/22 08:00 54 22 107/61 (76) 96 NIV Bilevel 45.00 09/08/22 07:33 65 21 96 45.00 09/08/22 07:00 54 09/08/22 07:00 56 16 96/57 (70) 97 NIV Bilevel 45.00 09/08/22 06:00 77 25 124/68 (86) 97 NIV Bilevel 45.00 09/08/22 05:00 62 24 112/71 (85) 97 NIV Bilevel 45.00 09/08/22 04:00 97 NIV Bilevel 45 09/08/22 04:00 36.7 09/08/22 04:00 57 15 101/56 (71) 97 NIV Bilevel 45.00 09/08/22 03:00 65 16 88/50 (63) 96 NIV Bilevel 45.00 09/08/22 02:29 37.3 09/08/22 02:28 70 27 98 45.00 09/08/22 02:00 66 18 122/71 (88) 97 NIV Bilevel 45.00 09/08/22 01:07 38.6 09/08/22 01:00 73 28 127/64 (85) 96 NIV Bilevel 45.00 09/08/22 01:00 80 09/08/22 00:04 85 09/08/22 00:02 108 99 09/08/22 00:00 38.6 09/08/22 00:00 79 29 119/68 (85) 96 NIV Bilevel 45.00 09/07/22 23:45 NIV Bilevel 45 09/07/22 23:45 79 131/70 (90) 96 NIV Bilevel 45.00 09/07/22 23:43 108 99 45.00 09/07/22 23:35 129/78 09/07/22 23:30 87 127/73 (91) 96 NIV Bilevel 45.00 09/07/22 22:07 98 4.00 09/07/22 21:40 38.6 108 44 161/86 (111) 98 Nasal Cannula 4.00 09/07/22 21:40 99 Nasal Cannula 4.00 I & O 09/08/22 07:00 Intake Total 550 ml Balance 550 ml Height & Weight Height: 5'9.00" Weight: 174lbs. 0.0oz. 78.458126ik; 30.29 BMI Method:Stated General Appearance: No Apparent Distress, Obese HEENT: PERRL/EOMI Neck: Non Tender, Supple Respiratory: Chest Non Tender, No Accessory Muscle Use, No Respiratory Distress, Other (decreased breath sounds with mild wheezing in lung bases bilaterally) Cardiovascular: Regular Rate, Rhythm, No Murmur, Normal Peripheral Pulses Gastrointestinal: normal bowel sounds, non tender, soft, no organomegaly, hernia (Large protrusion of abdomen with increased abd pressure activities) Extremity: Normal Capillary Refill, Non Tender Neurologic/Psychiatric: Alert, bingo clerk II-XII Norm as Tested, Other (Oriented to self and place, but not time.) Skin: Normal Color, Warm/Dry Lymphatic: No Adenopathy Results Lab Laboratory Tests 09/07/22 21:53 09/08/22 04:07 Assessment/Plan Assessment/Plan Acute on Chronic RF -Patient has history of COPD for which he uses oxygen intermittently at home (3-4L). -Tx with inhalers, steroids and Bipap. Will wean from bipap as pt. tolerates. -Tx for Pneumonia was started in the ED with zosyn and azithromycin. Per me and CXR read, no signs of acute pulmonary process was identified. Will consider de-escelating to just axithromycin. Insulin Dependent DM -Insulin sliding scale HTN -Within normal limits at this time. Goal is systolic <160 mmHg while in the hospital. 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 reports chronic in nature secondary to prior procedure. Unclear what procedure it was that he had done. He denies pain or constipation associated with it AMS -Patient is oriented to self and place but not time. He endorses struggling with memory chronically. Unclear exact etiology at this time. GE SANCHEZ MD 09/08/22 1153: History of Present Illness History of Present Illness History of Present Illness I have supervised this medical student and agree with above hx Allergies and Home Medications Allergies Coded Allergies: No Known Drug Allergies (Unverified , 12/21/17) Home Medications Albuterol Sulfate 18 Gm Hfa.aer.ad, 2 PUFF INH Q6H PRN for WHEEZING, (Reported) Calcium Cit/Mag/D3/Zn/Chocolate Temperer/Zeus 1 Each Tablet, 1 EACH PO BID, (Reported) Cholecalciferol (Vitamin D3) 5,000 Unit Tablet, 5,000 UNIT PO DAILY, (Reported) Cyanocobalamin (Vitamin B-12) 500 Mcg Tablet, 500 MCG PO DAILY, (Reported) Doxazosin Mesylate 2 Mg Tablet, 2 MG PO DAILY, (Reported) Escitalopram Oxalate 10 Mg Tablet, 10 MG PO DAILY, (Reported) Ferrous Sulfate 325 Mg Tablet.dr, 325 MG PO BID, (Reported) Folic Acid 1 Mg Tablet, 1 MG PO DAILY, (Reported) Insulin Regular, Human 1,000 Units/10 Ml Soln, 0 SQ BID SLIDING SCALE PRN for SLIDING SCALE, (Reported) Ipratropium [place] 12.9 Gm Aers, 1 PUFF IH QID, (Reported) Loratadine 10 Mg Tablet, 10 MG PO DAILY, (Reported) Losartan Potassium 50 Mg Tablet, 50 MG PO DAILY, (Reported) Methylphenidate HCl 5 Mg Tablet, 2.5 MG PO BID, (Reported) TAKE 1/2 OF 5MG TAB Assessment/Plan Assessment/Plan I have supervised this medical student and also independently assessed the patient. agree with above assessment. Critical Care: Critically Ill Patient (20) MARIANA FRANCO Sep 08, 2022 08:58 GE SANCHEZ MD Sep 08, 2022 11:53
--- NOTE | 2022-09-08 09:23 | History & Physical-Hospitalist ---
History of Present Illness HPI/Chief Complaint Patient is 67-year-old male with past medical history of intracranial hemorrhage, COPD, hypertension, hepatitis C, insulin-dependent diabetes type 2 who presented to the emergency department due to shortness of breath. He is a very poor historian and I am sure unsure if he is hard of hearing or if he is deflecting his poor memory but he answered most questions by saying "huh?" And then laughing. When I asked him if he was teasing me he smiled and nodded and when I repeated the questions he gave the same response. He was able to tell me that he had been short of breath for a while but was not able to quantify it for me. He had told the emergency room he is normally on 4 L of oxygen all the time but he told me he does not regularly wear oxygen. Because of this most history is obtained from the records. He was in respiratory distress on arrival and placed on BiPAP. He was thought to have a COPD exacerbation and admitted to the ICU. He was taken off of BiPAP this morning and was on 2 L of oxygen nasal cannula. He did report feeling much better than he did yesterday. Source: [facility] Exam Limitations: clinical condition Date Seen 09/08/22 Time Seen by a Provider: 09:23 Attending Physician Adriana Carter DO PCP Admitting Physician: Devin Galarza MD Attending Physician: Devin Galarza MD Referring Physician Date of Admission Sep 07, 2022 at 23:00 Home Medications & Allergies Home Medications Reviewed patient Home Medication Reconciliation performed by pharmacy medication reconciliations mold tooling technician and/or nursing. Patients Allergies have been reviewed. Allergies Allergies Coded Allergies No Known Drug Allergies (Unverified12/21/17) Past Xoibzsb-Pkftlj-Yaeeif Hx Patient Social History Tobacco Use?: No Smoking Status: Former Smoker Use of E-Cig and/or Vaping dev: No Substance use?: No Alcohol Use?: No Immunizations Up To Date Date of Influenza Vaccine: Apr 04, 2022 First/Initial COVID19 Vaccinat: 2020 Second COVID19 Vaccination Fer: 2020 Seasonal Allergies Seasonal Allergies: No Current Status Advance Directives: Unable to obtain Communicates: Verbally Primary Language: Filipino Preferred Spoken Language: Filipino Is interpretation needed?: No Past Medical History Surgeries: Abdominal, Gallbladder COPD High Cholesterol, Hypertension Stroke Hepatitis, Cirrhosis Diabetes, Insulin dep ADD/ADHD Blood Disorders: No Adverse Reaction/Blood Tranf: No (NA) Hyperlipidemia Hypertension COPD CVA Hepatitis (treated) Cirrhosis DM type 2 Family Medical History Reviewed Nursing Family Hx No Pertinent Family Hx No pertinent history reported Review of Systems Constitutional: see HPI Physical Exam Physical Exam Vital Signs Vital Signs - First Documented 09/07/22 09/07/22 21:40 23:45 Temp 38.6 Pulse 108 Resp 44 B/P (MAP) 161/86 (111) Pulse Ox 99 O2 Delivery Nasal Cannula O2 Flow Rate 4.00 FiO2 45 Capillary Refill : Height, Weight, BMI Height: 5'9.00" Weight: 174lbs. 0.0oz. 78.371100gg; 30.29 BMI Method:Stated General Appearance: No Apparent Distress, Chronically ill Respiratory: No Accessory Muscle Use, Decreased Breath Sounds Cardiovascular: Regular Rate, Rhythm, No Murmur Gastrointestinal: Normal Bowel Sounds, Non Tender, Soft Extremity: Normal Capillary Refill, No Pedal Edema Neurologic/Psychiatric: Alert, Disoriented Results Results/Procedures Labs Laboratory Tests 09/07/22 21:53 09/08/22 04:07 Patient resulted labs reviewed. Imaging: Reviewed Imaging Report Imaging [facility], [place] NAME: [facility] REC#: [id number] PT STATUS: ADM IN : 1955 PHYSICIAN: STEPHANIE PRESLEY DO ADMIT DATE: 09/07/22/ICU Signed Date of Exam:09/07/22 CHEST 1 VIEW, AP/PA ONLY INDICATION: Shortness of breath Portable chest 10:30 PM Heart size and pulmonary vascularity are normal. Lungs are clear. There are no effusions or pneumothoraces. IMPRESSION: Negative chest Dictated by: Dictated on workstation # [id number] Dict: 09/08/2222 Trans: 09/08/22 0658 PATRICK [id number] Interpreted by: HAZEL RAYGOZA MD Electronically signed by: HAZEL RAYGOZA MD 09/08/22 0658 Assessment/Plan Admission Diagnosis Acute on chronic respiratory failure due to COPD Admission Status: Inpatient Order (span 2 midnights) Reason for Inpatient Admission: see below Assessment and Plan Acute on chronic respiratory failure due to COPD On BiPAP until this morning Now on nasal cannula Titrate as able Continue steroids Was febrile so abx started, will continue TeleICU consulted, appreciate recs Wean oxygen h/o ICH Dementia HTN BP well controlled, trend Resume home meds as appropriate when med rec done PT/OT I called and updated his sister Rebeca/KAM regarding admission IDDMII Sliding scale insulin until med rec done Hepatitis C Cirrhosis Thrombocytopenia Reported in NH records DVT ppx: Lovenox Diagnosis/Problems Diagnosis/Problems (1) Dementia (2) Insulin dependent diabetes mellitus (3) Hypertension (4) Chronic respiratory failure (5) Hepatitis (6) Thrombocytopenia (7) History of intracranial hemorrhage (8) COPD exacerbation (9) Respiratory failure Qualifiers: Chronicity: acute on chronic Respiratory failure complication: unspecified whether with hypoxia or hypercapnia Qualified Codes: J96.20 - Acute and chronic respiratory failure, unspecified whether with hypoxia or hypercapnia Copy Copies To 1: ADRIANA CARTER KATELYN M MD Sep 08, 2022 09:23
[2022-09-08] MEDS ORDERED: ESCI20TA39 PO (12:46)
[2022-09-08] MEDS ORDERED: CARB15DR OU (12:46)
[2022-09-08] MEDS ORDERED: METH5TAB86 PO (12:46)
[2022-09-08] MEDS ORDERED: FLUT1BLS15 IN (12:46)
[2022-09-08] MEDS ORDERED: ALBU2.5V4 NEB (12:46)
[2022-09-08] MEDS ORDERED: ROFL500T9 PO (12:46)
[2022-09-08] MEDS ORDERED: LOPE-175 PO (12:46)
[2022-09-08] MEDS ORDERED: GLUC1VIA15 IJ (12:46)
[2022-09-08] MEDS: ENOXAPARIN 40 MG/0.4 ML (LOVENOX) SYR SQ SCH (13:46)
--- NOTE | 2022-09-08 14:05 | Physical Therapy Evaluation ---
PT Evaluation-General Medical Diagnosis Admission Date Sep 07, 2022 at 23:00 Medical Diagnosis: COPD exacerbation Onset Date: Sep 07, 2022 Therapy Diagnosis Therapy Diagnosis: Gait deficit, strength deficit Height/Weight Height (Feet): 5 Height (Inches): 9.00 Weight (Pounds): 174 Weight (Ounces): 0.0 Precautions Precautions/Isolations: Fall Prevention, Standard Precautions Weight Bear Status Right Lower Extremity: Right Full Weight Bearing Left Lower Extremity: Left Full Weight Bearing Referral Physician: Dr. Simmons Reason for Referral: Evaluation/Treatment Medical History Pertinent Medical History: COPD, DM, Dementia, HTN Reviewed History: Yes Social History Home: [facility] Entry Into Home: Level Entry Prior Prior Level of Function SCALE: Activities may be completed with or without assistive devices. 3-Zgpqaupbnk-vowwonn completes the activity by him/herself with no assistance from a helper. 5-Set-up or Clean-up Assistance-helper sets up or cleans up; patient completes activity. [place] assists only prior to or following the activity. 4-Supervision or Touching Assistance-helper provides verbal cues and/or touching/steadying and/or contact guard assistance as patient completes activity. Assistance may be provided throughout the activity or intermittently. 3-Partial/Moderate Assistance-helper does LESS THAN HALF the effort. [place] lifts, holds or supports trunk or limbs, but provides less than half the effort. 2-Substantial/Maximal Assistance-helper does MORE THAN HALF the effort. [place] lifts or holds trunk or limbs and provides more than half the effort. 5-Zwyutoxvx-vaalbb does ALL the effort. Patient does none of the effort to complete the activity. Or, the assistance of 2 or more helpers is required for the patient to complete the activity. If activity was not attempted, code reason: 7-Patient Refused. 9-Not Applicable-not attempted and the patient did not perform the activity before the current illness, exacerbation or injury. 10-Not Attempted due to Environmental Limitations-(lack of equipment, weather restraints, etc.). 88-Not Attempted due to Medical Conditions or Safety Concerns. Bed Mobility: 6 Transfers (B,C,W/C): 6 Gait: 6 Stairs: 6 Indoor Mobility (Ambulation): Independent Prior Devices Use: None PT Evaluation-Current Subjective Patient lying supine in bed upon PT arrival, agreeable to treatment. Patient rates pain at 0/10 currently. Patient poor historian; all subjective information in the evaluation per patient report. Objective Patient Orientation: Person Attachments: Oxygen ROM/Strength ROM Lower Extremities Bilateral knees lack 40 degrees from full extension in sitting. While standing knee extension improves however patient still lacks ~10-20 degrees. All other ROMs bilaterally WFLs Strength Lower Extremities 4-/5 to 4/5 bilaterally all planes. Sensory Vision: Functional Hearing: Impaired Sensation Right Lower Extremit: Intact Sensation Left Lower Extremity: Intact Transfers Roll Left to Right (QC): 3 Sit to Lying (QC): 3 Lying to Sitting/Side of Bed(Q: 3 Sit to Stand (QC): 4 Chair/Pxs-jy-Ysrme Xfer(QC): 4 Toilet Transfer (QC): 4 Gait Does the Patient Walk?: Yes Mode of Locomotion: Walk Anticipated Mode of Locomotion: Walk Walk 10 feet (QC): 4 Walk 50 ft with 2 Turns(QC): 4 Distance: 100 feet Gait Assistive Device: FWW Balance Sitting Static: Good Sitting Dynamic: Good Standing Static: Fair Standing Dynamic: Fair Assessment/Needs Patient demonstrates fair overall tolerance to activity. Patient requires min A for all bed mobility and SBA for all transfers. Patient ambulates 100 feet with FWW, with SBA and verbal cues for safety, progression, balance and conservation of energy. Patient requests to use BR post treatment. Nurse in room post PT treatment with patient on toilet, call light in reach and all needs met. Rehab Potential: Good PT Clinical Cytopathologist Goals Assisted Goals PT Clinical Cytopathologist Goals Time Frame: Sep 29, 2022 Roll Left & Right (QC): 6 Sit to Lying (QC): 6 Lying-Sitting on Side/Bed(QC): 6 Sit to Stand (QC): 6 Chair/Xdk-sx-Ktgka Xfer(QC): 6 Toilet Transfer (QC): 6 Does the Patient Walk: Yes Walk 10 feet (QC): 6 Walk 50ft with 2 Turns (QC): 6 Walk 150 ft (QC): 6 PT Plan Problem List Problem List: Activity Tolerance, Functional Strength, Safety, Balance, Gait, Transfer, Bed Mobility, ROM Treatment/Plan Treatment Plan: Continue Plan of Care Treatment Plan: Bed Mobility, Education, Functional Activity Valery, Functional Strength, Group Therapy, Gait, Safety, Therapeutic Exercise, Transfers Treatment Duration: Sep 29, 2022 Frequency: 6 times per week Estimated Hrs Per Day: .25 hour per day Patient and/or Family Agrees t: Yes Safety Risks/Education Patient Education: Gait Training, Transfer Techniques Teaching Recipient: Patient Teaching Methods: Demonstration, Discussion Response to Teaching: Verbalize Understanding, Return Demonstration Time Time In: 1329 Time Out: 1355 DATE: Sep 08, 2022 Total Billed Treatment Time: 26 Total Billed Treatment Visit, Trudy THORPE JOHN A PT Sep 08, 2022 14:05
--- NOTE | 2022-09-08 15:48 | Occupational Therapy Eval ---
OT Evaluation-General/PLF Medical Diagnosis Admission Date Sep 07, 2022 at 23:00 Medical Diagnosis: COPD exacerbation Onset Date: Sep 07, 2022 Therapy Diagnosis Therapy Diagnosis: weakness,SOA Height/Weight Height (Feet): 5 Height (Inches): 9.00 Weight (Pounds): 174 Weight (Ounces): 0.0 Precautions Precautions/Isolations: Fall Prevention, Standard Precautions Weight Bear Status Weight Bearing Restriction: Full Weight Bearing Referral Physician: Dr. Simmons Referral Reason: Evaluation/Treatment Medical History Pertinent Medical History: COPD, DM, Dementia, HTN Current History Patient is 67-year-old male with past medical history of intracranial hemorrhage, COPD, hypertension, hepatitis C, insulin-dependent diabetes type 2 who presented to the emergency department due to shortness of breath Social History Home: [facility] Entry Into Home: Level Entry ADL-Prior Level of Function SCALE: Activities may be completed with or without assistive devices. 9-Pgyrrempym-fzmfspf completes the activity by him/herself with no assistance f rom a helper. 5-Set-up or Clean-up Assistance-helper sets up or cleans up; patient completes activity. [place] assists only prior to or following the activity. 4-Supervision or Touching Assistance-helper provides verbal cues and/or touching/steadying and/or contact guard assistance as patient completes activity. Assistance may be provided throughout the activity or intermittently. 3-Partial/Moderate Assistance-helper does LESS THAN HALF the effort. [place] lifts, holds or supports trunk or limbs, but provides less than half the effort. 2-Substantial/Maximal Assistance-helper does MORE THAN HALF the effort. [place] lifts or holds trunk or limbs and provides more than half the effort. 3-Guxxvxhye-fkssna does ALL the effort. Patient does none of the effort to complete the activity. Or, the assistance of 2 or more helpers is required for the patient to complete the activity. If activity was not attempted, code reason: 7-Patient Refused. 9-Not Applicable-not attempted and the patient did not perform the activity before the current illness, exacerbation or injury. 10-Not Attempted due to Environmental Limitations-(lack of equipment, weather restraints, etc.). 88-Not Attempted due to Medical Conditions or Safety Concerns. Self Care: Needed Some Help Functional Cognition: Needed Some Help Drive Self: No OT Current Status Subjective Agreeable to OT evaluation Pain Numeric Pain Scale: 0-No Pain Mental Status/Objective Patient Orientation: Person Attachments: IV, Oxygen (4 liters), Telemetry Current Upper Extremity ROM BUE ROM WFLS Upper Extremity Strength +4/5 noted multiple hernias and scar vertical abdomen, red palms ADL-Treatment Eating (QC): 6 Oral Hygiene (QC): 4 Shower/Bathe Self (QC): 4 Upper Body Dressing (QC): 4 Lower Body Dressing (QC): 4 On/Off Footwear (QC): 5 Toileting Hygiene (QC): 4 PLOF is current baseline Education OT Patient Education: Purpose of tx/functional activities, Reviewed precautions, Rehab process, Safety issues, Transfer techniques Teaching Recipient: Patient Teaching Methods: Demonstration, Discussion Response to Teaching: Verbalize Understanding OT Sales Clerk Food Goals Jail Goals 1=Demonstrate adherence to instructed precautions during ADL tasks. 2=Patient will verbalize/demonstrate understanding of assistive devices/modifications for ADL. 3=Patient will improve strength/tolerance for activity to enable patient to perform ADL's. OT Education/Plan Problem List/Assessment Assessment: No Skilled OT Needs ID'd Discharge Recommendations Plan/Recommendations: Discontinue OT Therapy Discharge Recommendati: Other, See Comments (return to DC) Treatment Plan/Plan of Care Treatment,Training & Education: Yes Patient would benefit from OT for education, treatment and training to promote independence in ADL's, mobility, safety and/or upper extremity function for ADL's. Plan of Care: OTHER (EVAL only) Treatment Duration: Sep 08, 2022 Frequency: 1 time per week Estimated Hrs Per Day: .25 hour per day Agreement: Yes Rehab Potential: Fair Time Start Time: 15:30 Stop Time: 15:48 DATE: Sep 08, 2022 Total Time Billed (hr/min): 18 Billed Treatment Time EVM 18 KWASI Escobedo OT Sep 08, 2022 15:48
[2022-09-08] MEDS: inSUlin ASPART (NovoLOG) 1 UNIT/0.01 ML (CHARGE PER UNIT) SC SCH ×2 (17:09→21:40)
[2022-09-09] MEDS: AZITHROMYCIN INJECTION 500 MG in NS (IVPB) 250 ML IV SCH (00:45)
[2022-09-09] MEDS: RT-ALBUTEROL/IPRATROPIUM 3 ML (DUONEB) VIAL INH SCH ×6 (02:42→21:10)
[2022-09-09] MEDS: PIPERACILLIN SODIUM/TAZOBACTAM 4.5 GM in NS (IVPB) 100 ML IV SCH (04:30)
[2022-09-09] MEDS: methylPREDNISolone 40 MG/ML (Solu-MEDROL) VIAL IV SCH (05:06)
[2022-09-09] MEDS: CATHETER FLUSH 10 ML SYR IVP SCH ×3 (05:06→20:31)
[2022-09-09 05:21] LABS: BASOPHILS % (AUTO) 0 % (0-10); EOSINOPHILS % (AUTO) 0 % (0-10); HEMOGLOBIN 12.6 g/dL (13.3-17.7)
[2022-09-09 05:23] LABS: HEMATOCRIT 38 % (40-54); LYMPHOCYTES # (AUTO) 0.5 10^3/uL (1.0-4.0); LYMPHOCYTES % (AUTO) 8 % (12-44); MEAN CORPUSCULAR HEMOGLOBIN 32 pg (25-34); MEAN CORPUSCULAR HGB CONC 33 g/dL (32-36); MEAN CORPUSCULAR VOLUME 95 fL (80-99); MEAN PLATELET VOLUME 10.7 fL (9.0-12.2); MONOCYTES # (AUTO) 0.2 10^3/uL (0.0-1.0); MONOCYTES % (AUTO) 4 % (0-12); NEUTROPHILS # (AUTO) 5.4 10^3/uL (1.8-7.8); NEUTROPHILS % (AUTO) 88 % (42-75); PLATELET COUNT 130 10^3/uL (130-400); WHITE BLOOD COUNT 6.1 10^3/uL (4.3-11.0)
[2022-09-09 05:35] LABS: ALBUMIN 3.7 GM/DL (3.2-4.5); POTASSIUM 3.9 MMOL/L (3.6-5.0)
[2022-09-09 05:36] LABS: CALCIUM 9.3 MG/DL (8.5-10.1)
[2022-09-09 05:38] LABS: TOTAL PROTEIN 6.4 GM/DL (6.4-8.2)
[2022-09-09 05:39] LABS: BILIRUBIN,TOTAL 0.4 MG/DL (0.1-1.0)
[2022-09-09 05:41] LABS: CREATININE SERUM 0.88 MG/DL (0.60-1.30)
[2022-09-09 05:44] LABS: MAGNESIUM 2.1 MG/DL (1.6-2.4)
[2022-09-09] MEDS: POTASSIUM CL 10MEQ/50ML IVPB 50 ML IV SCH (05:47)
[2022-09-09] MEDS: MAGNESIUM 1 GM/100 ML IVPB 100 ML IV SCH (05:47)
[2022-09-09] MEDS: inSUlin ASPART (NovoLOG) 1 UNIT/0.01 ML (CHARGE PER UNIT) SC SCH ×4 (05:52→20:30)
[2022-09-09] MEDS: KCL 20 MEQ TAB (K-DUR) PO SCH (05:53)
--- NOTE | 2022-09-09 11:38 | Progress Note - Hospitalist ---
Subjective HPI/CC On Admission Date Seen by Provider: Sep 09, 2022 Patient is 67-year-old male with past medical history of intracranial hemorrhage, COPD, hypertension, hepatitis C, insulin-dependent diabetes type 2 who presented to the emergency department due to shortness of breath. He is a very poor historian and I am sure unsure if he is hard of hearing or if he is deflecting his poor memory but he answered most questions by saying "huh?" And then laughing. When I asked him if he was teasing me he smiled and nodded and when I repeated the questions he gave the same response. He was able to tell me that he had been short of breath for a while but was not able to quantify it for me. He had told the emergency room he is normally on 4 L of oxygen all the time but he told me he does not regularly wear oxygen. Because of this most history is obtained from the records. He was in respiratory distress on arrival and placed on BiPAP. He was thought to have a COPD exacerbation and admitted to the ICU. He was taken off of BiPAP this morning and was on 2 L of oxygen nasal cannula. He did report feeling much better than he did yesterday. Subjective/Events-last exam Pt reports feeling better. No complaints. Doing well. Focused Exam Lactate Level 09/07/22 21:53: Lactic Acid Level 0.74 Objective Exam Vital Signs Vital Signs Date Time Temp Pulse Resp B/P (MAP) Pulse Ox O2 Delivery O2 Flow Rate FiO2 09/09/22 11:15 93 Nasal Cannula 1.00 09/09/22 11:00 90 27 120/59 (83) 09/09/22 08:30 37.0 09/08/22 08:00 45 Capillary Refill : General Appearance: No Apparent Distress, Chronically ill Respiratory: No Accessory Muscle Use, No Respiratory Distress, Wheezing Cardiovascular: Regular Rate, Rhythm, No Murmur Neurologic/Psychiatric: Alert, Disoriented Results/Procedures Lab Laboratory Tests 09/09/22 04:15 Patient resulted labs reviewed. Imaging: Reviewed Imaging Report Assessment/Plan Assessment and Plan Assess & Plan/Chief Complaint Acute on chronic respiratory failure due to COPD Still on nasal cannula Continue steroids- switch to oral Trial off abx as cultures all negative and WBC negative TeleICU consulted, appreciate recs Wean oxygen to keeps sats >90 Transfer to 4th h/o ICH Dementia HTN BP well controlled, trend Continue home meds as appropriate PT/OT IDDMII Sliding scale insulin Hepatitis C Cirrhosis Thrombocytopenia Reported in NH records DVT ppx: Lovenox Critical Care Critically Ill Patient (20) Diagnosis/Problems Diagnosis/Problems (1) Dementia (2) Insulin dependent diabetes mellitus (3) Hypertension (4) Chronic respiratory failure (5) Hepatitis (6) Thrombocytopenia (7) History of intracranial hemorrhage (8) COPD exacerbation (9) Respiratory failure Qualifiers: Chronicity: acute on chronic Respiratory failure complication: unspecified whether with hypoxia or hypercapnia Qualified Codes: J96.20 - Acute and chronic respiratory failure, unspecified whether with hypoxia or hypercapnia CARO CAMACHO MD Sep 09, 2022 11:37
[2022-09-09] MEDS ORDERED: ESCI20TA39 PO ×2 (11:57)
--- NOTE | 2022-09-09 12:54 | Physical Therapy Daily Note ---
PT Daily Note-Current Subjective Pt in bed, agreeable. Pain Numeric Pain Scale: 0-No Pain Location: No Pain Reported Section J - Health Conditions 1. Rarely or not at all 2. Occasionally 3. Frequently 4. Almost constantly 8. Unable to answer Pain Effect on Sleep: 1 Pain Interference with Therapy: 1 Pain Interference w/Day-to-Day: 1 Mental Status Patient Orientation: Person, Place, Time, Situation Attachments: Oxygen Transfers SCALE: Activities may be completed with or without assistive devices. 8-Srodgedpft-jwajtlx completes the activity by him/herself with no assistance from a helper. 5-Set-up or Clean-up Assistance-helper sets up or cleans up; patient completes activity. [place] assists only prior to or following the activity. 4-Supervision or Touching Assistance-helper provides verbal cues and/or touching/steadying and/or contact guard assistance as patient completes ac tivity. Assistance may be provided throughout the activity or intermittently. 3-Partial/Moderate Assistance-helper does LESS THAN HALF the effort. [place] lifts, holds or supports trunk or limbs, but provides less than half the effort. 2-Substantial/Maximal Assistance-helper does MORE THAN HALF the effort. [place] lifts or holds trunk or limbs and provides more than half the effort. 5-Gxhmjigzi-pgbiih does ALL the effort. Patient does none of the effort to complete the activity. Or, the assistance of 2 or more helpers is required for the patient to complete the activity. If activity was not attempted, code reason: 7-Patient Refused. 9-Not Applicable-not attempted and the patient did not perform the activity before the current illness, exacerbation or injury. 10-Not Attempted due to Environmental Limitations-(lack of equipment, weather restraints, etc.). 88-Not Attempted due to Medical Conditions or Safety Concerns. Roll Left & Right (QC): 4 Lying to Sitting/Side of Bed(Q: 4 (Min a x 1) Sit to Stand (QC): 5 (SBA) Weight Bearing Right Lower Extremity: Right Full Weight Bearing Left Lower Extremity: Left Full Weight Bearing Gait Training Does the Patient Walk?: Yes Distance: 100 Walk 10 feet (QC): 4 Walk 50 ft with 2 Turns(QC): 4 Gait Persons Needed: 1 Gait Assistive Device: FWW CGA x 1 for safety with gait, VCS for pursed lip breathing Wheelchair Training Does the Pt Use a Wheelchair?: No Type of Wheelchair: N/A Assessment Current Status: Fair Progress Pt tolerated fair-well. Pt with tendency to mouth breath, multiple VCS for pur sed lip breathing. O2 sats at 89% upon return to chair but improved with rest to >92% after 30". Up in chair post treatment with O2 in situ PT Snf Goals Snf Goals PT Track Equipment Operator Goals Time Frame: Sep 29, 2022 Roll Left & Right (QC): 6 Sit to Lying (QC): 6 Lying-Sitting on Side/Bed(QC): 6 Sit to Stand (QC): 6 Chair/Dzj-vq-Ofcow Xfer(QC): 6 Toilet Transfer (QC): 6 Does the Patient Walk: Yes Walk 10 feet (QC): 6 Walk 50ft with 2 Turns (QC): 6 Walk 150 ft (QC): 6 PT Plan Problem List Problem List: Activity Tolerance, Functional Strength, Safety, Balance, Gait, Transfer, Bed Mobility Treatment/Plan Treatment Plan: Continue Plan of Care Treatment Plan: Bed Mobility, Education, Functional Activity Valery, Functional Strength, Group Therapy, Gait, Safety, Therapeutic Exercise, Transfers Treatment Duration: Sep 29, 2022 Frequency: 6 times per week Estimated Hrs Per Day: .25 hour per day Patient and/or Family Agrees t: Yes Safety Risks/Education Teaching Recipient: Patient Teaching Methods: Discussion Response to Teaching: Verbalize Understanding, Reinforcement Needed Pursed lip breathing Time Time In: 906 Time Out: 919 DATE: Sep 09, 2022 Total Billed Treatment Time: 13 Total Billed Treatment 1, FA x 13' ARIK BARRAZA DPKianna Sep 09, 2022 12:54
[2022-09-09] MEDS: ENOXAPARIN 40 MG/0.4 ML (LOVENOX) SYR SQ SCH (14:15)
[2022-09-09 16:59] VITALS: BP 147/70
[2022-09-09 20:11] VITALS: BP 144/68
[2022-09-09 23:37] VITALS: BP 146/71
[2022-09-10] MEDS: AZITHROMYCIN INJECTION 500 MG in NS (IVPB) 250 ML IV SCH (00:25)
[2022-09-10] MEDS: RT-ALBUTEROL/IPRATROPIUM 3 ML (DUONEB) VIAL INH SCH ×6 (03:15→21:50)
[2022-09-10 03:37] VITALS: BP 152/78
[2022-09-10] MEDS: inSUlin ASPART (NovoLOG) 1 UNIT/0.01 ML (CHARGE PER UNIT) SC SCH ×4 (05:40→20:19)
[2022-09-10 05:55] LABS: EOSINOPHILS % (AUTO) 0 % (0-10); MEAN CORPUSCULAR VOLUME 95 fL (80-99); MEAN PLATELET VOLUME 10.1 fL (9.0-12.2)
[2022-09-10 05:57] LABS: BASOPHILS % (AUTO) 0 % (0-10); HEMATOCRIT 37 % (40-54); HEMOGLOBIN 12.1 g/dL (13.3-17.7); LYMPHOCYTES # (AUTO) 1.4 10^3/uL (1.0-4.0); LYMPHOCYTES % (AUTO) 19 % (12-44); MEAN CORPUSCULAR HEMOGLOBIN 31 pg (25-34); MEAN CORPUSCULAR HGB CONC 33 g/dL (32-36); MONOCYTES # (AUTO) 0.5 10^3/uL (0.0-1.0); MONOCYTES % (AUTO) 7 % (0-12); NEUTROPHILS # (AUTO) 5.1 10^3/uL (1.8-7.8); NEUTROPHILS % (AUTO) 73 % (42-75); PLATELET COUNT 146 10^3/uL (130-400)
[2022-09-10 06:09] LABS: ALBUMIN 3.6 GM/DL (3.2-4.5); POTASSIUM 3.4 MMOL/L (3.6-5.0)
[2022-09-10 06:10] LABS: CALCIUM 9.2 MG/DL (8.5-10.1)
[2022-09-10 06:12] LABS: TOTAL PROTEIN 6.1 GM/DL (6.4-8.2)
[2022-09-10] MEDS: KCL 20 MEQ TAB (K-DUR) PO SCH (06:12)
[2022-09-10] MEDS: POTASSIUM CL 10MEQ/50ML IVPB 50 ML IV SCH (06:12)
[2022-09-10 06:13] LABS: BILIRUBIN,TOTAL 0.3 MG/DL (0.1-1.0)
[2022-09-10 06:15] LABS: CREATININE SERUM 0.92 MG/DL (0.60-1.30); PHOSPHORUS 2.6 MG/DL (2.3-4.7)
[2022-09-10 06:18] LABS: MAGNESIUM 1.7 MG/DL (1.6-2.4)
[2022-09-10] MEDS: MAGNESIUM 1 GM/100 ML IVPB 100 ML IV SCH ×5 (06:19→10:33)
[2022-09-10] MEDS: CATHETER FLUSH 10 ML SYR IVP SCH ×3 (06:37→20:22)
[2022-09-10] MEDS: predniSONE 20 MG TAB PO SCH (06:37)
[2022-09-10] MEDS ORDERED: KCL 20 MEQ TAB (K-DUR) PO NR (07:00)
[2022-09-10] MEDS: ACETAMINOPHEN 500 MG TAB (TYLENOL) PO PRN (08:13)
[2022-09-10] MEDS: METHYLPHENIDATE 5 MG (RITALIN) TAB PO SCH (08:14)
[2022-09-10] MEDS: LORATADINE (CLARITIN) 10 MG TAB PO SCH (08:14)
[2022-09-10 08:24] VITALS: BP 167/92
[2022-09-10] MEDS: ROFLUMILAST 500 MCG TAB (DALIRESP) PO SCH (08:26)
[2022-09-10] MEDS ORDERED: NON-FORMULARY MEDICATION 1 EA EA (Fluticasone/Umeclidin/Vilanter (Trelegy Ellipta 200-62.5 IN SCH (10:00)
--- NOTE | 2022-09-10 11:17 | Progress Note - Hospitalist ---
Subjective HPI/CC On Admission Date Seen by Provider: Sep 10, 2022 Patient is 67-year-old male with past medical history of intracranial hemorrhage, COPD, hypertension, hepatitis C, insulin-dependent diabetes type 2 who presented to the emergency department due to shortness of breath. He is a very poor historian and I am sure unsure if he is hard of hearing or if he is deflecting his poor memory but he answered most questions by saying "huh?" And then laughing. When I asked him if he was teasing me he smiled and nodded and when I repeated the questions he gave the same response. He was able to tell me that he had been short of breath for a while but was not able to quantify it for me. He had told the emergency room he is normally on 4 L of oxygen all the time but he told me he does not regularly wear oxygen. Because of this most history is obtained from the records. He was in respiratory distress on arrival and placed on BiPAP. He was thought to have a COPD exacerbation and admitted to the ICU. He was taken off of BiPAP this morning and was on 2 L of oxygen nasal cannula. He did report feeling much better than he did yesterday. Subjective/Events-last exam Pt reports doing well. Breathing improving. Only request is for a new IV. Focused Exam Lactate Level 09/07/22 21:53: Lactic Acid Level 0.74 Objective Exam Vital Signs Vital Signs Date Time Temp Pulse Resp B/P (MAP) Pulse Ox O2 Delivery O2 Flow Rate FiO2 09/10/22 11:09 91 High Flow N/C 5.00 09/10/22 08:24 37.0 84 23 167/92 (117) 09/08/22 08:00 45 Capillary Refill : General Appearance: No Apparent Distress, Chronically ill, Obese Respiratory: No Accessory Muscle Use, No Respiratory Distress, Wheezing (expiratory and improving) Cardiovascular: Regular Rate, Rhythm, No Murmur Neurologic/Psychiatric: Alert, Other (oriented to person, place, and major details) Results/Procedures Lab Laboratory Tests 09/10/22 05:31 Patient resulted labs reviewed. Imaging: Reviewed Imaging Report Assessment/Plan Assessment and Plan Assess & Plan/Chief Complaint Acute on chronic respiratory failure due to COPD Still on nasal cannula Continue steroids- switch to oral Trial off abx as cultures all negative and WBC negative TeleICU consulted, appreciate recs Wean oxygen to keeps sats >90 Transfer to 4th h/o ICH Dementia HTN BP well controlled, trend Continue home meds as appropriate PT/OT IDDMII Sliding scale insulin Hepatitis C Cirrhosis Thrombocytopenia Reported in NH records DVT ppx: Lovenox Diagnosis/Problems Diagnosis/Problems (1) Dementia (2) Insulin dependent diabetes mellitus (3) Hypertension (4) Chronic respiratory failure (5) Hepatitis (6) Thrombocytopenia (7) History of intracranial hemorrhage (8) COPD exacerbation (9) Respiratory failure Qualifiers: Chronicity: acute on chronic Respiratory failure complication: unspecified whether with hypoxia or hypercapnia Qualified Codes: J96.20 - Acute and chronic respiratory failure, unspecified whether with hypoxia or hypercapnia CARO CAMACHO MD Sep 10, 2022 11:17
[2022-09-10 11:52] VITALS: BP 147/81
[2022-09-10] MEDS: ENOXAPARIN 40 MG/0.4 ML (LOVENOX) SYR SQ SCH (14:06)
[2022-09-10 15:56] VITALS: BP 162/88
[2022-09-10 19:50] VITALS: BP 153/86
[2022-09-10 23:32] VITALS: BP 154/73
[2022-09-11] MEDS: AZITHROMYCIN INJECTION 500 MG in NS (IVPB) 250 ML IV SCH (00:09)
[2022-09-11] MEDS: RT-ALBUTEROL/IPRATROPIUM 3 ML (DUONEB) VIAL INH SCH ×2 (02:32→07:39)
[2022-09-11 03:24] VITALS: BP 161/72
[2022-09-11] MEDS: inSUlin ASPART (NovoLOG) 1 UNIT/0.01 ML (CHARGE PER UNIT) SC SCH ×2 (05:37→10:59)
[2022-09-11 05:52] LABS: BASOPHILS % (AUTO) 0 % (0-10); EOSINOPHILS % (AUTO) 0 % (0-10); HEMATOCRIT 37 % (40-54); HEMOGLOBIN 12.2 g/dL (13.3-17.7); LYMPHOCYTES # (AUTO) 1.8 10^3/uL (1.0-4.0); LYMPHOCYTES % (AUTO) 32 % (12-44); MEAN CORPUSCULAR HEMOGLOBIN 32 pg (25-34); MEAN CORPUSCULAR HGB CONC 33 g/dL (32-36); MEAN CORPUSCULAR VOLUME 96 fL (80-99); MEAN PLATELET VOLUME 9.9 fL (9.0-12.2); MONOCYTES # (AUTO) 0.4 10^3/uL (0.0-1.0); MONOCYTES % (AUTO) 8 % (0-12); NEUTROPHILS # (AUTO) 3.3 10^3/uL (1.8-7.8); NEUTROPHILS % (AUTO) 59 % (42-75); PLATELET COUNT 132 10^3/uL (130-400); WHITE BLOOD COUNT 5.5 10^3/uL (4.3-11.0)
[2022-09-11 06:17] LABS: ALBUMIN 3.6 GM/DL (3.2-4.5); POTASSIUM 3.9 MMOL/L (3.6-5.0)
[2022-09-11 06:18] LABS: CALCIUM 9.1 MG/DL (8.5-10.1)
[2022-09-11] MEDS: POTASSIUM CL 10MEQ/50ML IVPB 50 ML IV SCH (06:18)
[2022-09-11 06:19] LABS: TOTAL PROTEIN 6.2 GM/DL (6.4-8.2)
[2022-09-11 06:21] LABS: BILIRUBIN,TOTAL 0.4 MG/DL (0.1-1.0)
[2022-09-11 06:22] LABS: PHOSPHORUS 3.3 MG/DL (2.3-4.7)
[2022-09-11 06:23] LABS: CREATININE SERUM 0.83 MG/DL (0.60-1.30)
[2022-09-11] MEDS: KCL 20 MEQ TAB (K-DUR) PO SCH (06:25)
[2022-09-11] MEDS: MAGNESIUM 1 GM/100 ML IVPB 100 ML IV SCH (06:29)
[2022-09-11] MEDS ORDERED: KCL 20 MEQ TAB (K-DUR) PO ONE (06:30)
[2022-09-11] MEDS: CATHETER FLUSH 10 ML SYR IVP SCH ×2 (06:33→13:21)
[2022-09-11] MEDS: predniSONE 20 MG TAB PO SCH (06:33)
[2022-09-11 08:03] VITALS: BP 166/86
[2022-09-11] MEDS: METHYLPHENIDATE 5 MG (RITALIN) TAB PO SCH (08:37)
[2022-09-11] MEDS: ROFLUMILAST 500 MCG TAB (DALIRESP) PO SCH (08:37)
[2022-09-11] MEDS: LORATADINE (CLARITIN) 10 MG TAB PO SCH (08:37)
--- NOTE | 2022-09-11 09:57 | Physical Therapy Daily Note ---
PT Daily Note-Current Subjective Patient agrees to PT. He states he hopes to go home today. Pain Section J - Health Conditions 1. Rarely or not at all 2. Occasionally 3. Frequently 4. Almost constantly 8. Unable to answer Pain Effect on Sleep: 1 Pain Interference with Therapy: 1 Pain Interference w/Day-to-Day: 1 Mental Status Patient Orientation: Normal For Age Attachments: Oxygen Transfers SCALE: Activities may be completed with or without assistive devices. 4-Dlhsejdwlf-ybxifim completes the activity by him/herself with no assistance from a helper. 5-Set-up or Clean-up Assistance-helper sets up or cleans up; patient completes activity. [place] assists only prior to or following the activity. 4-Supervision or Touching Assistance-helper provides verbal cues and/or touching/steadying and/or contact guard assistance as patient completes activity. Assistance may be provided throughout the activity or intermittently. 3-Partial/Moderate Assistance-helper does LESS THAN HALF the effort. [place] lifts, holds or supports trunk or limbs, but provides less than half the effort. 2-Substantial/Maximal Assistance-helper does MORE THAN HALF the effort. [place] lifts or holds trunk or limbs and provides more than half the effort. 3-Kfxdsfpwc-oscytr does ALL the effort. Patient does none of the effort to comp lete the activity. Or, the assistance of 2 or more helpers is required for the patient to complete the activity. If activity was not attempted, code reason: 7-Patient Refused. 9-Not Applicable-not attempted and the patient did not perform the activity before the current illness, exacerbation or injury. 10-Not Attempted due to Environmental Limitations-(lack of equipment, weather restraints, etc.). 88-Not Attempted due to Medical Conditions or Safety Concerns. Sit to Stand (QC): 6 Weight Bearing Right Lower Extremity: Right Full Weight Bearing Left Lower Extremity: Left Full Weight Bearing Gait Training Distance: 400' Walk 10 feet (QC): 5 Walk 50 ft with 2 Turns(QC): 5 Walk 150 ft (QC): 5 Gait Assistive Device: FWW slow, steady gait sequence Assessment Patient is up in recliner with needs met. O2 at rest 3L HF, with activity 4-6L per RN. Patient SAO2 remains >90%. PT Longterm Goals Longterm Goals PT Asphalt Spreader Operator Goals Time Frame: Sep 29, 2022 Roll Left & Right (QC): 6 Sit to Lying (QC): 6 Lying-Sitting on Side/Bed(QC): 6 Sit to Stand (QC): 6 Chair/Yge-gx-Ezdgc Xfer(QC): 6 Toilet Transfer (QC): 6 Does the Patient Walk: Yes Walk 10 feet (QC): 6 Walk 50ft with 2 Turns (QC): 6 Walk 150 ft (QC): 6 PT Plan Treatment/Plan Treatment Plan: Continue Plan of Care Treatment Plan: Bed Mobility, Education, Functional Activity Valery, Functional Strength, Group Therapy, Gait, Safety, Therapeutic Exercise, Transfers Treatment Duration: Sep 29, 2022 Frequency: 6 times per week Estimated Hrs Per Day: .25 hour per day Patient and/or Family Agrees t: Yes Time Time In: 920 Time Out: 931 DATE: Sep 11, 2022 Total Billed Treatment Time: 11 Total Billed Treatment 1 visit FA 11 min OSMAR MEHTA PT Sep 11, 2022 09:57
[2022-09-11 12:03] VITALS: BP 169/83
[2022-09-11] MEDS: ENOXAPARIN 40 MG/0.4 ML (LOVENOX) SYR SQ SCH (13:20)
[2022-09-11] MEDS ORDERED: PRED10TA22 PO (13:37)
--- NOTE | 2022-09-11 13:43 | Discharge Summary ---
Discharge Summary Hospital Course Hospital Course Date of Admission: Sep 07, 2022 at 23:00 Admission Diagnosis : Acute on chronic respiratory failure with hypoxia due to COPD exacerbation Family Physician/Provider: Bert Sandoval DO Date of Discharge: 09/11/22 Discharge Diagnosis: Acute on chronic respiratory failure with hypoxia due to COPD exacerbation Hospital Course: Ezio Orellana is a 67 year old male who was admitted with acute on chronic respiratory failure with hypoxia due to COPD exacerbation. He was treated with supplemental oxygen. He was also given breathing treatments and steroids and improved. He was discharged back to [facility] with skilled therapies. He should follow up with his PCP within a couple weeks. He was given a steroid taper to complete as an outpatient. Labs and Pending Lab Test: Laboratory Tests 09/10/22 16:00: Glucometer 151H 09/10/22 19:52: Glucometer 118H 09/10/22 23:36: Glucometer 109 09/11/22 05:29: Glucometer 101 09/11/22 05:45: White Blood Count 5.5, Red Blood Count 3.86L, Hemoglobin 12.2L, Hematocrit 37L, Mean Corpuscular Volume 96, Mean Corpuscular Hemoglobin 32, Mean Corpuscular Hemoglobin Concent 33, Red Cell Distribution Width 12.6, Platelet Count 132, Mean Platelet Volume 9.9, Immature Granulocyte % (Auto) 1, Neutrophils (%) (Auto) 59, Lymphocytes (%) (Auto) 32, Monocytes (%) (Auto) 8, Eosinophils (%) (Auto) 0, Basophils (%) (Auto) 0, Neutrophils # (Auto) 3.3, Lymphocytes # (Auto) 1.8, Monocytes # (Auto) 0.4, Eosinophils # (Auto) 0.0, Basophils # (Auto) 0.0, Immature Granulocyte # (Auto) 0.0, Sodium Level 142, Potassium Level 3.9, Chloride Level 106, Carbon Dioxide Level 25, Anion Gap 11, Blood Urea Nitrogen 15, Creatinine 0.83, Estimat Glomerular Filtration Rate 96, BUN/Creatinine Ratio 18, Glucose Level 99, Calcium Level 9.1, Corrected Calcium 9.4, Phosphorus Level 3.3, Magnesium Level 2.0, Total Bilirubin 0.4, Aspartate Amino Transf (AST/SGOT) 24, Alanine Aminotransferase (ALT/SGPT) 18, Alkaline Phosphatase 55, Total P rotein 6.2L, Albumin 3.6 09/11/22 10:57: Glucometer 129H Microbiology 09/08/22 MRSA Screen - Final, Complete MRSA not isolated 09/07/22 Blood Culture - Preliminary, Resulted Staph, Coag Neg (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 Reported Escitalopram Oxalate 20 Mg Tablet 20 Mg PO DAILY Imodium A-D (Loperamide HCl) 2 Mg Capsule 2-4 Mg PO UD PRN MDD 8MG GIVE 2 TABS AFTER FIRST LOOSE STOOL THEN GIVE 1 TAB AFTER EAR ADDITIONAL LOOSE STOOL- DO NOT EXCEED 4 TABS DAILY Glucagon Emergency Kit (Glucagon HCl) 1 Mg Vial 1 Mg IJ UD PRN NEEDED FOR UNRESPONSIVE HYPOGLYCEMIA IF BLOOD GLUCOSE IS LESS THAN 70 AND STILL UNRESPONSIVE REPEAT DOSE Albuterol Sulfate 2.5 Mg/3 Ml (0.083 %) Vial.neb 3 Ml NEB QID PRN Refresh Tears (Carboxymethylcellulose Sodium) 0.5 % Drops 2 Drops OU UD PRN Trelegy Ellipta 200-62.5-25 (Fluticasone/Umeclidin/Vilanter) 200-62.5 Blst.w.dev 1 Puff IN 1000 RINSE MOUTH WITH WATER AFTER USE- DO NOT SWALLOW Methylphenidate HCl 5 Mg Tablet 5 Mg PO DAILY Roflumilast 500 Mcg Tablet 500 Mcg PO DAILY Ventolin Hfa (Albuterol Sulfate) 18 Gm Hfa.aer.ad 2 Puff INH Q6H PRN Multivitamins with Minerals (Multivitamin with Minerals) 1 Each Tablet 1 Each PO DAILY Cardura (Doxazosin Mesylate) 2 Mg Tablet 2 Mg PO DAILY HOLD FOR SBP<100 OR PULSE <60. NORIFY PCP IF HELD FOR 3 CONSECUTIVE DAYS Losartan Potassium 50 Mg Tablet 50 Mg PO DAILY HOLD FOR SBP<100 OR PULSE <60. NORIFY PCP IF HELD FOR 3 CONSECUTIVE DAYS Loratadine 10 Mg Tablet 10 Mg PO DAILY Instructions to Patient/Family Assessment/Instructions See instructions Follow Up Appt.: 2 weeks with PCP Skilled NF Admit to: [facility] Certification (SNF) I certify that SNF services are required to be given on an inpatient basis because of the above named patient's need for correction care on a continuing basis for the conditions(s) for which he/she was receiving inpatient hospital services prior to his/her transfer to the SNF. Intermediate Facility Order: Nursing Services, Nuclear Physician-Evaluate & Treat, Physical Therapy-Evaluate & Treat Oxygen Delivery Method: Nasal Cannula Discharge Diet: ADA Diet Daily Activity as Tolerated: Yes Kae Alaniz Sep 11, 2022 13:39 Discharge Physical Exam General: Alert, Cooperative HEENT: Atraumatic, Mucous Memb Moist/[place] Lungs: Clear to Auscultation, Normal Air Movement Heart: Regular Rate, No Murmurs Abdomen: Normal Bowel Sounds, Soft, No Tenderness Extremities: No Edema, No Tenderness/Swelling Skin: No Rashes, No Significant Lesion Neuro: Normal Speech, Normal Tone Psych/Mental Status: Mental Status NL, Mood NL KAE ALANIZ MD Sep 11, 2022 13:43
[2022-09-11 14:02] VITALS: BP 169/83
[2022-09-11] MEDS ORDERED: RT-ALBUTEROL/IPRATROPIUM 3 ML (DUONEB) VIAL INH SCH (15:00)
--- NOTE | 2022-09-11 19:59 | Physician Query Clarification ---
Physician Query-General Query to Physician: Clinical Validation Clarification Dr Aidan Simmons or Dr. Beba Alaniz Community-acquired pneumonia has been documented in the medical record. After study, has community-acquired pneumonia been ruled out? If it has been ruled out, please document community-acquired pneumonia ruled out" in the progress notes and/or discharge summary. Yes/Agreed, community-acquired pneumonia diagnosis ruled out/is not clinically valid Not agreed, community-acquired pneumonia diagnosis has not been ruled out/is clinically valid* *Please document the clinical evidence supportive of this diagnosis (even if now resolved) in the Progress Notes and Discharge Summary Other, with explanation of the clinical findings Clinically undetermined, no explanation for the clinical findings Additional information: Presented to ER with shortness of breath, progressing to respiratory failure, chest x-ray " negative chest", no cough admission vital signs and labs: HR 108, RR 44, BP 161/86, SpO2 98% sat on 4 L T 38.6, WBC 5.8, lactic acid 0.74 no PCT drawn Treatment ER: DuoNeb, Solu-Medrol IV, Zosyn IV In responding to this query, please exercise your independent professional judgment. The purpose of this communication is to more accurately reflect the complexity of your patients condition. The fact that a question is asked does not imply that any particular answer is desired or expected. Thank you for your timely response to this clarification. Lilian Tate MSN, RN Clinical College Recruiter [email or web address] PHYSICIAN RESPONSE: Based on the clinical findings in the record, please respond to the query above on this document as an addendum. Physician Response: Physician Response Yes/Agreed, community-acquired pneumonia diagnosis ruled out/is not clinically valid If you have questions please contact: Railroad Construction Director: Ext: Thank you for your time and cooperation. Clinical College Recruiter/Railroad Construction Director This is a permanent part of the medical r ecord LILIAN TATE Sep 11, 2022 19:59 KAE ALANIZ MD Sep 12, 2022 07:49
== END 2022-09-11 14:20 | DRG 189 ==
LOC: EDUNIT# 21:39 → ER 21:40 → ICU 23:00 → 4TH 09-09 13:03
PROVIDERS: ADMIT Internal Medicine; ATTEND Internal Medicine
PROC: 5A09357 Assistance with Respiratory Ventilation, Less than 24 Consecutive Hours, Continuous Positive Airway Pressure (ICD-10-PCS; principal; 2022-09-07)
PROC: 5A0935A Assistance with Respiratory Ventilation, Less than 24 Consecutive Hours, High Flow/Velocity Cannula (ICD-10-PCS; 2022-09-09)
DX: J96.21 Acute and chronic respiratory failure with hypoxia (principal); J44.1 Chronic obstructive pulmonary disease with (acute) exacerbation; I10 Essential (primary) hypertension; E11.9 Type 2 diabetes mellitus without complications; K74.60 Unspecified cirrhosis of liver; F03.90 Unspecified dementia, unspecified severity, without behavioral disturbance, psychotic disturbance, mood disturbance, and anxiety; D69.6 Thrombocytopenia, unspecified; E78.00 Pure hypercholesterolemia, unspecified; F90.9 Attention-deficit hyperactivity disorder, unspecified type; Z20.822 Contact with and (suspected) exposure to COVID-19; Z86.73 Personal history of transient ischemic attack (TIA), and cerebral infarction without residual deficits; Z79.4 Long term (current) use of insulin; Z87.891 Personal history of nicotine dependence; Z99.81 Dependence on supplemental oxygen; Z79.899 Other long term (current) drug therapy
CPT/HCPCS: 36415; 71045; 80053; 82947; 83605; 83735; 84100; 84484; 85007; 85025; 85027; 85610; 85730; 87040; 87081; 87636; 93005; 94640; 94660; 94760

== ENCOUNTER → 2023-06-11 | Outpatient (CLI) | payer MEDICARE, MEDICAID ==
[~2023-06-11] MED LIST changes: +ALBU2.5V4 NEB; +CARB15DR OU; -DOXA2TAB PO; +DOXA2TAB92 PO; +ESCI20TA39 PO; +FERR220S8 PO; -FESO45ML PO; +FLUT1BLS15 IN; +GLUC1VIA15 IJ; +LOPE-175 PO; +METH5TAB86 PO; +PRED10TA22 PO; +ROFL500T9 PO
--- NOTE | 2023-06-11 09:09 | Diagnostic Imaging Report ---
CT Lung Screening INDICATION: 45 pack year smoking history cessation one month ago for baseline low-dose CT screening TECHNIQUE: Noncontrast, low-dose CT imaging performed according to the lung cancer screening protocol. Auto Exposure Controls were utilize during the CT exam to meet ALARA standards for radiation dose reduction. COMPARISON:Baseline FINDINGS:No lung mass or suspicious pulmonary nodule. There is symmetrical air trapping with mild paraseptal bullous emphysematous changes. No pneumonia, edema or failure pattern. No effusion or pneumothorax. There are coronary artery atherosclerotic vascular calcifications. The thoracic aorta nonaneurysmal. The visible upper abdomen showing prior surgical changes to the stomach. IMPRESSION: 1. No findings of lung cancer. Continued annual low-dose CT screening follow-up in one year's time recommended. 2. Coronary atherosclerosis and COPD. LUNG-RADS CATEGORY:Category 1 Dictated by: Dictated on workstation # [id number]
== END ==
LOC: RAD 08:05
PROVIDERS: ATTEND Nurse Practitioner Family
DX: Z12.2 Encounter for screening for malignant neoplasm of respiratory organs (principal); I25.10 Atherosclerotic heart disease of native coronary artery without angina pectoris; Z87.891 Personal history of nicotine dependence
CPT/HCPCS: 71271